=== PATIENT | female | born 1970 | race Caucasian/White ===

== ENCOUNTER 2021-07-08 08:00 | Outpatient (CLI) | payer MEDICAID, OTHER | END 2021-07-08 23:59 | disposition home or self-care (01) | LOC: LAB.N 08:00 | PROVIDERS: ATTEND Family Medicine | DX: U07.1 COVID-19 (principal) ==

== ENCOUNTER 2021-09-06 16:15 | Outpatient (CLI) | payer OTHER | END 2021-09-06 16:16 | disposition EMS.NT | LOC: EMS 16:15 | DX: S60.311A Abrasion of right thumb, initial encounter (principal); V47.5XXA Car driver injured in collision with fixed or stationary object in traffic accident, initial encounter; Y93.89 Activity, other specified; Y92.410 Unspecified street and highway as the place of occurrence of the external cause ==

== ENCOUNTER 2023-06-30 16:09 | Outpatient (CLI) | payer OTHER | END 2023-06-30 23:59 | disposition critical access hospital (66) | LOC: EMS 16:09 | DX: R41.82 Altered mental status, unspecified (principal); R46.89 Other symptoms and signs involving appearance and behavior | CPT/HCPCS: A0425; A0429 ==

== ENCOUNTER 2023-06-30 16:29 | Emergency (ER) | payer OTHER ==
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
[2023-06-30 17:06] LABS: MUDS CUTOFF CONCENTRATIONS CUTOFF CONC BELOW:
[2023-06-30 17:08] LABS: BASOPHILS % (AUTO) 0.6 %; EOSINOPHILS # (AUTO) 0.1 10^3/uL (0.0-0.7); EOSINOPHILS % (AUTO) 0.9 %; LYMPHOCYTES # (AUTO) 0.3 10^3/uL (1.5-3.5); LYMPHOCYTES % (AUTO) 5.3 %; MEAN CORPUSCULAR HEMOGLOBIN 28.4 pg (27.0-31.0); MEAN CORPUSCULAR HGB CONC 32.3 g/dL (32.0-36.0); MEAN CORPUSCULAR VOLUME 87.8 fL (81.0-99.0); MEAN PLATELET VOLUME 8.3 fL (7.9-10.8); MONOCYTES # (AUTO) 0.6 10^3/uL (0.0-1.0); MONOCYTES % (AUTO) 10.8 %; NEUTROPHILS # (AUTO) 4.3 10^3/uL (1.5-6.6); PLT - PLATELET COUNT 301 10^3/uL (130-450); RED BLOOD COUNT 2.22 10^6/uL (4.20-5.40); RED CELL DISTRIBUTION WIDTH 14.4 % (12.0-15.0); WHITE BLOOD COUNT 5.3 x10^3/uL (4.8-10.8)
[2023-06-30 17:13] LABS: BILIRUBIN,URINE NEGATIVE (NEGATIVE); GLUCOSE, URINE (UA) NEGATIVE (NEGATIVE); KETONES,URINE (UA) NEGATIVE (NEGATIVE); LEUKOCYTE ESTERASE, URINE NEGATIVE (NEGATIVE); NITRITE,URINE NEGATIVE (NEGATIVE); OCCULT BLOOD,URINE NEGATIVE (NEGATIVE); PH,URINE 5.5 PH (5.0-7.5); PROTEIN,URINE NEGATIVE (NEGATIVE); UROBILINOGEN,URINE 0.2 (NORMAL) E.U./dL (NORMAL)
[2023-06-30 17:17] LABS: CLARITY,URINE CLEAR (CLEAR)
[2023-06-30 17:20] LABS: HCT - HEMATOCRIT 19.5 % (37.0-47.0); HGB - HEMOGLOBIN 6.3 g/dL (12.0-16.0); INR 1.2 (0.8-1.2); PT - PROTHROMBIN TIME 13.3 secs (9.9-12.6)
[2023-06-30 17:25] LABS: AMPHETAMINE SCREEN,URINE NEGATIVE (NEGATIVE); BARBITURATE SCREEN,UR NEGATIVE (NEGATIVE); BENZODIAZEPINES SCREEN, URINE NEGATIVE (NEGATIVE); COCAINE SCREEN URINE NEGATIVE (NEGATIVE); METHADONE SCREEN, URINE NEGATIVE (NEGATIVE); METHAMPHETAMINES SCREEN, URINE NEGATIVE (NEGATIVE); OPIATE SCREEN, URINE NEGATIVE (NEGATIVE); OXYCODONE SCREEN, URINE NEGATIVE (NEGATIVE); PROPOXYPHENE SCREEN, URINE NEGATIVE (NEGATIVE); THC CANNABINOID SCREEN, URINE NEGATIVE (NEGATIVE); TRICYCLIC ANTIDEPRESSANT,URINE NEGATIVE (NEGATIVE)
[2023-06-30 17:26] LABS: ALBUMIN 3.8 g/dL (3.2-5.5); ALBUMIN/GLOBULIN RATIO 1.2 (1.0-2.2); ALKALINE PHOSPHATASE 135 IU/L (42-121); ALT ALANINE AMINOTRANSFERASE 37 IU/L (10-60); AST ASPARTATE AMINOTRANSFERASE 73 IU/L (10-42); BILIRUBIN,TOTAL 2.2 mg/dL (0.2-1.0); BUN - BLOOD UREA NITROGEN 52 mg/dL (6-20); CALCIUM 9.9 mg/dL (8.5-10.3); CARBON DIOXIDE - CO2 19 mmol/L (21-32); CHLORIDE 94 mmol/L (101-111); CK- CREATINE KINASE 490 IU/L (30-223); CREATININE 1.7 mg/dL (0.6-1.3); ETOH - ETHANOL < 10.0 mg/dL; GFR - MDRD 31 (>89); GLUCOSE 93 mg/dL (74-104); LIPASE 101 U/L (11-82); SODIUM 123 mmol/L (135-145); TOTAL PROTEIN 6.9 g/dL (6.4-8.9)
[2023-06-30 17:29] LABS: SALICYLATE < 1.5 mg/dL
[2023-06-30 17:30] LABS: ACETAMINOPHEN < 0.1 ug/mL
[2023-06-30] MEDS ORDERED: LACTULOSE 10 GM /15 ML UDC PO STA (17:54)
[2023-06-30 17:59] LABS: THYROID STIMULATING HORMONE 2.59 uIU/mL (0.34-5.60)
[2023-06-30] MEDS ORDERED: NICOTINE 21 MG PATCH TOP STA (18:10)
[2023-06-30 19:37] VITALS: O2SAT 100
--- NOTE | 2023-06-30 19:59 | CT Report ---
PROCEDURE: HEAD WO INDICATIONS: ams; ascites TECHNIQUE: Noncontrast 4.5 mm thick angled axial sections acquired from the foramen magnum to the vertex. For r adiation dose reduction, the following was used: automated exposure control, adjustment of mA and/or kV according to patient size. COMPARISON: None. FINDINGS: Image quality: Excellent. CSF spaces: Basal cisterns are patent. No extra-axial fluid collections. Ventricles are normal in size and shape. Brain: No midline shift. No intracranial masses or hemorrhage. Gibbs-white matter interface is norm al. Skull and face: Calvarium and visualized facial bones are intact, without suspicious lesions. Sinuses: Visualized sinuses and mastoids are clear. IMPRESSION: No acute intracranial pathology. Reviewed by: Yessica Genao MD on 06/30/2023 7:58 PM PDT Approved by: Yessica Genao MD on 06/30/2023 7:58 PM PDT Station ID: [id number]
[2023-06-30] MEDS ORDERED: PANTOPRAZOLE 40 MG VIAL IVP STA (20:46)
--- NOTE | 2023-06-30 20:46 | XRAY Report ---
PROCEDURE: Chest 1 View X-Ray INDICATIONS: AMS TECHNIQUE: One view of the chest was acquired. COMPARISON: None. FINDINGS: Surgical changes and devices: None. Lungs and pleura: No pleural effusions or pneumothorax. Lungs are clear. Mediastinum: Mediastinal contours appear normal. Heart size is normal. Bones and chest wall: No suspicious bony lesions. Overlying soft tissues appear unremarkable. IMPRESSION: No acute cardiopulmonary disease. Reviewed by: Reji James MD on 06/30/2023 8:45 PM PDT Approved by: Reji James MD on 06/30/2023 8:45 PM PDT Station ID: [id number]
--- NOTE | 2023-06-30 22:59 | ED Physician Documentation ---
ED Addendum - Addendum Addendum: 06/30/23 22:59 I did discuss the case with hepatology at the [facility], Dr. Collado who declined to the case for admission as patient does not need the specialized capabilities of the [facility]. Care to the overnight emergency physician at shift change pending hopeful [facility]well sfer to a Facility capable of hepatology consultation for likely slow GI bleed and JESSICA
--- NOTE | 2023-06-30 23:47 | ED Physician Documentation ---
ED Addendum - Addendum Addendum: 06/30/23 23:47 Still during my shift she was excepted to [facility] by Dr. Art Rosales at approximately 2340. [place] were completed and she is stable for transport. Disposition: Transfer to [facility] Condition: Stable Diagnosis: 1. GI bleed 2. Anemia related to GI bleed 3. Hepatic encephalopathy
[2023-07-01 02:23] VITALS: BP 129/66
[2023-07-01] MEDS ORDERED: LACTULOSE 10 GM /15 ML UDC PO SCH (03:00)
== END 2023-07-01 02:31 | disposition short-term general hospital (02) ==
LOC: EDUNIT# → ED 16:29
DX: K74.60 Unspecified cirrhosis of liver (principal); R18.8 Other ascites; K76.82 Hepatic encephalopathy; R41.82 Altered mental status, unspecified; E87.1 Hypo-osmolality and hyponatremia; R74.8 Abnormal levels of other serum enzymes; N18.32 Chronic kidney disease, stage 3b; D63.1 Anemia in chronic kidney disease; F17.200 Nicotine dependence, unspecified, uncomplicated; K92.2 Gastrointestinal hemorrhage, unspecified; Z79.899 Other long term (current) drug therapy
CPT/HCPCS: 36415; 70450; 71045; 80053; 80306; 80307; 80320; 80329; 81003; 82140; 82272; 82550; 83690; 83735; 84443; 85025; 85610; 86850; 86900; 86901; 86920; 87635; 93005; 96374; 99285; A9270; P9016; 81001; 87086

== ENCOUNTER 2023-07-04 15:13 | Outpatient (CLI) | payer OTHER | END 2023-07-04 15:14 | disposition critical access hospital (66) | LOC: EMS 15:13 | DX: R56.9 Unspecified convulsions (principal); R10.9 Unspecified abdominal pain; S00.83XA Contusion of other part of head, initial encounter; X58.XXXA Exposure to other specified factors, initial encounter | CPT/HCPCS: A0425; A0429 ==

== ENCOUNTER 2023-07-04 15:30 | Emergency (ER) | payer OTHER ==
[2023-07-04 16:06] LABS: BASOPHILS % (AUTO) 0.5 %; EOSINOPHILS # (AUTO) 0.1 10^3/uL (0.0-0.7); EOSINOPHILS % (AUTO) 1.2 %; HCT - HEMATOCRIT 24.3 % (37.0-47.0); HGB - HEMOGLOBIN 7.9 g/dL (12.0-16.0); LYMPHOCYTES # (AUTO) 0.3 10^3/uL (1.5-3.5); LYMPHOCYTES % (AUTO) 3.7 %; MEAN CORPUSCULAR HEMOGLOBIN 28.6 pg (27.0-31.0); MEAN CORPUSCULAR HGB CONC 32.5 g/dL (32.0-36.0); MEAN PLATELET VOLUME 8.3 fL (7.9-10.8); MONOCYTES # (AUTO) 0.9 10^3/uL (0.0-1.0); MONOCYTES % (AUTO) 11.2 %; NEUTROPHILS # (AUTO) 6.4 10^3/uL (1.5-6.6); PLT - PLATELET COUNT 241 10^3/uL (130-450); RED BLOOD COUNT 2.76 10^6/uL (4.20-5.40); RED CELL DISTRIBUTION WIDTH 14.8 % (12.0-15.0); WHITE BLOOD COUNT 8.2 x10^3/uL (4.8-10.8)
--- NOTE | 2023-07-04 16:09 | ED Physician Documentation ---
History of Present Illness - Stated complaint Stated Complaint: SZ - Chief complaint Chief Complaint: Neuro - History obtained from History obtained from: Patient, Family, EMS - History of Present Illness Timing: Today Pain level max: 0 Pain level now: 0 - Additonal information Additional information: 53-year-old female with a history of alcoholic liver cirrhosis presents to the emergency department after seizure-like episode at home today. Lasted somewhere between 30 seconds and a minute. Had the patient's mother states that her eyes "rolled back in her head" and she began to shake. Stop breathing for a few seconds. There is no description of a postictal period. Patient was not confused afterwards. Patient does have a history of hepatic encephalopathy. She was discharged from [facility] 2 days ago for anemia and hepatic encephalopathy. She had received 2 units of blood at that time. She is on medication at home but her family is unsure if she is taking the medication or not. Patient states that she has taken her medication. No fevers. No chills. No trauma. Patient denies any current alcohol use. Review of Systems Constitutional: denies: Fever, Chills GI: denies: Vomiting, Diarrhea Skin: denies: Rash Musculoskeletal: denies: Neck pain, Back pain Neurologic: denies: Headache PD PAST MEDICAL HISTORY - Past Medical History Past Medical History: Yes GI: Cirrhosis - Past Surgical History Past Surgical History: Yes Ortho: Spine surgery - Allergies Allergies/Adverse Reactions: Allergies Allergy/AdvReac Type Severity Reaction Status Date / Time No Known Drug Allergies Allergy Verified 06/30/23 16:35 - Social History Does the pt smoke?: Yes Smoking Status: Current every day smoker Does the pt drink ETOH?: Yes Does the pt have substance abuse?: No PD ED PE NORMAL - Vitals Vital signs reviewed: Yes - General General: Alert and oriented X 3, No acute distress, Well developed/nourished - HEENT HEENT: Atraumatic, PERRL, EOMI, Moist mucous membranes, Other (No tongue biting. No intraoral injury.) - Neck Neck: Supple, no meningeal sign, No bony TTP - Cardiac Cardiac: RRR, Strong equal pulses - Respiratory Respiratory: No respiratory distress, Clear bilaterally - Abdomen Abdomen: Normal bowel sounds, Soft, Other (Distended abdomen, soft, nontender. There is a open wound near the umbilicus. Patient states this is chronic and unchanged. There is no drainage.) - Back Back: No CVA TTP, No spinal TTP - Derm Derm: Warm and dry, No rash - Extremities Extremities: No edema, No calf tenderness / cord - Neuro Neuro: Alert and oriented X 3, registry rn 2-12 intact, No motor deficit, No sensory deficit, Normal speech Eye Opening: Spontaneous Motor: Obeys Commands Verbal: Oriented GCS Score: 15 - Psych Psych: Normal mood, Normal affect Results - Vitals Vitals: Vital Signs - 24 hr 07/04/23 07/04/23 07/04/23 15:37 16:10 17:16 Temperature 36.6 C Heart Rate 82 80 77 Respiratory 18 15 15 Rate Blood Pressure 119/101 H 84/49 L 104/69 O2 Saturation 100 100 100 07/04/23 07/04/23 17:17 18:04 Temperature Heart Rate 79 82 Respiratory 14 15 Rate Blood Pressure 106/59 L 91/60 O2 Saturation 100 95 Oxygen O2 Source Room air - Labs Labs: Laboratory Tests 07/04/23 07/04/23 07/04/23 15:55 15:55 15:55 WBC 8.2 RBC 2.76 L Hgb 7.9 L Hct 24.3 L MCV 88.0 MCH 28.6 MCHC 32.5 RDW 14.8 Plt Count 241 MPV 8.3 Neut # (Auto) 6.4 Lymph # (Auto) 0.3 L [place] # (Auto) 0.9 Eos # (Auto) 0.1 Baso # (Auto) 0.0 Absolute Nucleated RBC 0.00 Nucleated RBC % 0.0 Sodium 125 L Potassium 3.5 Chloride 97 L Carbon Dioxide 20 L Anion Gap 8.0 BUN 25 H Creatinine 0.8 Estimated GFR (MDRD) 75 L Glucose 104 Calcium 9.0 Magnesium 1.6 L Total Bilirubin 1.1 H AST 42 ALT 28 Alkaline Phosphatase 126 H Ammonia 45.5 Total Creatine Kinase 269 H Total Protein 6.5 Albumin 3.6 Globulin 2.9 Albumin/Globulin Ratio 1.2 Lipase 83 H TSH 4.06 Urine Color Urine Clarity Urine pH Ur Specific [place] Urine Protein Urine Glucose (UA) Urine Ketones Urine Occult Blood Urine Nitrite Urine Bilirubin Urine Urobilinogen Ur Leukocyte Esterase Ur Microscopic Review Urine Culture Comments Salicylates < 1.5 Urine Opiates Screen Ur Oxycodone Screen Urine Methadone Screen Ur Propoxyphene Screen Acetaminophen < 0 L Ur Barbiturates Screen Ur Tricyclics Screen Ur Phencyclidine Scrn Ur Amphetamine Screen U Methamphetamines Scrn U Benzodiazepines Scrn Urine Cocaine Screen U Cannabinoids Screen Ethyl Alcohol < 10.0 07/04/23 16:13 WBC RBC Hgb Hct MCV MCH MCHC RDW Plt Count MPV Neut # (Auto) Lymph # (Auto) [place] # (Auto) Eos # (Auto) Baso # (Auto) Absolute Nucleated RBC Nucleated RBC % Sodium Potassium Chloride Carbon Dioxide Anion Gap BUN Creatinine Estimated GFR (MDRD) Glucose Calcium Magnesium Total Bilirubin AST ALT Alkaline Phosphatase Ammonia Total Creatine Kinase Total Protein Albumin Globulin Albumin/Globulin Ratio Lipase TSH Urine Color YELLOW Urine Clarity CLEAR Urine pH 5.5 Ur Specific [place] 1.020 Urine Protein NEGATIVE Urine Glucose (UA) NEGATIVE Urine Ketones NEGATIVE Urine Occult Blood NEGATIVE Urine Nitrite NEGATIVE Urine Bilirubin NEGATIVE Urine Urobilinogen 0.2 (NORMAL) Ur Leukocyte Esterase NEGATIVE Ur Microscopic Review NOT INDICATED Urine Culture Comments NOT INDICATED Salicylates Urine Opiates Screen NEGATIVE Ur Oxycodone Screen NEGATIVE Urine Methadone Screen NEGATIVE Ur Propoxyphene Screen NEGATIVE Acetaminophen Ur Barbiturates Screen NEGATIVE Ur Tricyclics Screen NEGATIVE Ur Phencyclidine Scrn NEGATIVE Ur Amphetamine Screen NEGATIVE U Methamphetamines Scrn NEGATIVE U Benzodiazepines Scrn NEGATIVE Urine Cocaine Screen NEGATIVE U Cannabinoids Screen NEGATIVE Ethyl Alcohol - Rads (name of study) Head CT Relevant Findings:: Final report received, See rad report PD Medical Decision Making - ED course Complexity details: reviewed results, re-evaluated patient, considered differential, d/w patient, d/w family ED course: 53-year-old female with alcoholic cirrhosis of the liver. Seizure-like activity at home today. Unclear if this was a true seizure or not, family is not descriptive of a postictal period. 1 episode, never had similar symptoms in the past. Denies any recent alcohol or drug usage. Hemoglobin is around 8 which is stable for the patient. Her sodium levels are low at 125, this also appears to be chronic. She has no altered mental status. Ammonia is 45.5. She was given IV fluids here. Urinalysis does not show any infection. Toxicology screen is negative. She has a GI doctor at [facility] that she follows along with for her liver. I offered to start her on Keppra until she can see neurology and have an EEG as well as a brain MRI. Patient adamantly refuses any antiepileptic medications at this time. After to consult her neurologist as well which she also declines. She states she just wants to go home and will follow-up with her doctor. Patient is alert and oriented x3. We will have her follow-up with her PCP for further care. She was given a dose of pain medication here for her chronic back pain. Patient counseled regarding signs and symptoms for which I believe and urgent re-evaluation would be necessary. Patient with good understanding of and agreement to plan and is comfortable going home at this time This document was made in part using voice recognition software. While efforts are made to proofread this document, sound alike and grammatical errors may occur. Departure - Departure Disposition: 01 Home, Self Care Clinical Impression: Observed seizure-like activity, Hyponatremia Anemia Qualifiers: Anemia type: unspecified type Qualified Code(s): D64.9 - Anemia, unspecified Cirrhosis of liver Qualifiers: Hepatic cirrhosis type: alcoholic cirrhosis Ascites presence: with ascites Qualified Code(s): K70.31 - Alcoholic cirrhosis of liver with ascites Condition: Good Instructions: ED Cirrhosis Liver, ED Seizure New Onset Unk Cause Follow-Up: your,doctor in 1 week [Other] Comments: Please follow-up with your doctor for further care. Please return if you worsen. We did discuss starting medications for seizures tonight but you have declined this. If you have another seizure, I would recommend starting medication. Your doctor may want to perform an MRI and an EEG, MRI is not available tonight and we do not have EEG services at this hospital. Otherwise your head CT does not show any acute abnormalities tonight and your laboratory testing is stable from prior. Forms: PCP List Discharge Date/Time: 07/04/23 18:22
[2023-07-04 16:16] LABS: ALBUMIN 3.6 g/dL (3.2-5.5); ALBUMIN/GLOBULIN RATIO 1.2 (1.0-2.2); ALKALINE PHOSPHATASE 126 IU/L (42-121); ALT ALANINE AMINOTRANSFERASE 28 IU/L (10-60); AST ASPARTATE AMINOTRANSFERASE 42 IU/L (10-42); BILIRUBIN,TOTAL 1.1 mg/dL (0.2-1.0); BUN - BLOOD UREA NITROGEN 25 mg/dL (6-20); CARBON DIOXIDE - CO2 20 mmol/L (21-32); CHLORIDE 97 mmol/L (101-111); CK- CREATINE KINASE 269 IU/L (30-223); CREATININE 0.8 mg/dL (0.6-1.3); ETOH - ETHANOL < 10.0 mg/dL; GFR - MDRD 75 (>89); GLUCOSE 104 mg/dL (74-104); LIPASE 83 U/L (11-82); MAGNESIUM 1.6 mg/dL (1.7-2.3); POTASSIUM 3.5 mmol/L (3.5-4.5); SODIUM 125 mmol/L (135-145); TOTAL PROTEIN 6.5 g/dL (6.4-8.9)
[2023-07-04 16:19] LABS: SALICYLATE < 1.5 mg/dL
[2023-07-04] MEDS ORDERED: MAGNESIUM SULFATE 2 GRAM 2 GM/50 ML BAG IV ONE (16:28)
[2023-07-04] MEDS ORDERED: SODIUM CHLORIDE 0.9% 1,000 ML IV STA (16:28)
[2023-07-04 16:35] LABS: MUDS CUTOFF CONCENTRATIONS CUTOFF CONC BELOW:
[2023-07-04 16:40] LABS: BILIRUBIN,URINE NEGATIVE (NEGATIVE); GLUCOSE, URINE (UA) NEGATIVE (NEGATIVE); KETONES,URINE (UA) NEGATIVE (NEGATIVE); LEUKOCYTE ESTERASE, URINE NEGATIVE (NEGATIVE); NITRITE,URINE NEGATIVE (NEGATIVE); OCCULT BLOOD,URINE NEGATIVE (NEGATIVE); PH,URINE 5.5 PH (5.0-7.5); PROTEIN,URINE NEGATIVE (NEGATIVE); UROBILINOGEN,URINE 0.2 (NORMAL) E.U./dL (NORMAL)
[2023-07-04 16:41] LABS: CLARITY,URINE CLEAR (CLEAR)
[2023-07-04 16:49] LABS: THYROID STIMULATING HORMONE 4.06 uIU/mL (0.34-5.60)
[2023-07-04 16:53] LABS: AMPHETAMINE SCREEN,URINE NEGATIVE (NEGATIVE); BARBITURATE SCREEN,UR NEGATIVE (NEGATIVE); BENZODIAZEPINES SCREEN, URINE NEGATIVE (NEGATIVE); COCAINE SCREEN URINE NEGATIVE (NEGATIVE); METHADONE SCREEN, URINE NEGATIVE (NEGATIVE); METHAMPHETAMINES SCREEN, URINE NEGATIVE (NEGATIVE); OPIATE SCREEN, URINE NEGATIVE (NEGATIVE); OXYCODONE SCREEN, URINE NEGATIVE (NEGATIVE); PROPOXYPHENE SCREEN, URINE NEGATIVE (NEGATIVE); THC CANNABINOID SCREEN, URINE NEGATIVE (NEGATIVE); TRICYCLIC ANTIDEPRESSANT,URINE NEGATIVE (NEGATIVE)
[2023-07-04 17:13] LABS: ACETAMINOPHEN < 0 ug/mL (10-30)
--- NOTE | 2023-07-04 17:13 | CT Report ---
PROCEDURE: HEAD WO INDICATIONS: seizure like activity TECHNIQUE: Noncontrast 4.5 mm thick angled axial sections acquired from the foramen magnum to the vertex. For r adiation dose reduction, the following was used: automated exposure control, adjustment of mA and/or kV according to patient size. COMPARISON: CT head 06/30/2023 FINDINGS: Image quality: Excellent. CSF spaces: Basal cisterns are patent. No extra-axial fluid collections. Ventricles are normal in size and shape. Brain: No midline shift. No intracranial masses or hemorrhage. Gibbs-white matter interface is norm al. Skull and face: Calvarium and visualized facial bones are intact, without suspicious lesions. Sinuses: Visualized sinuses and mastoids are clear. IMPRESSION: No acute intracranial pathology. No significant interval change. Reviewed by: Giorgio Busby MD on 07/04/2023 5:12 PM PDT Approved by: Giorgio Busby MD on 07/04/2023 5:12 PM PDT Station ID: [id number]
[2023-07-04] MEDS ORDERED: oxyCODONE 5 MG TABLET PO STA (17:59)
[2023-07-04 18:12] VITALS: BP 91/60; O2SAT 95
== END 2023-07-04 18:22 | disposition home or self-care (01) ==
LOC: EDUNIT# → ED 15:30
DX: E87.1 Hypo-osmolality and hyponatremia (principal); D64.9 Anemia, unspecified; K74.60 Unspecified cirrhosis of liver; R18.8 Other ascites; F17.200 Nicotine dependence, unspecified, uncomplicated
CPT/HCPCS: 36415; 70450; 80053; 80306; 80307; 80320; 80329; 81003; 82140; 82550; 83690; 83735; 84443; 85025; 96365; 99284; A9270; 81001; 87086

== ENCOUNTER 2023-08-05 19:48 | Outpatient (CLI) | payer MEDICAID | END 2023-08-05 19:49 | disposition critical access hospital (66) | LOC: EMS 19:48 | DX: R41.0 Disorientation, unspecified (principal) | CPT/HCPCS: A0425; A0429; A0999 ==

== ENCOUNTER 2023-08-05 20:12 | Inpatient (IN) | payer MEDICAID, OTHER ==
[2023-08-05 20:30] LABS: BASOPHILS % (AUTO) 0.7 %; EOSINOPHILS # (AUTO) 0.2 10^3/uL (0.0-0.7); EOSINOPHILS % (AUTO) 2.8 %; HCT - HEMATOCRIT 28.8 % (37.0-47.0); HGB - HEMOGLOBIN 9.8 g/dL (12.0-16.0); LYMPHOCYTES # (AUTO) 0.5 10^3/uL (1.5-3.5); LYMPHOCYTES % (AUTO) 8.6 %; MEAN CORPUSCULAR HEMOGLOBIN 29.4 pg (27.0-31.0); MEAN CORPUSCULAR VOLUME 86.5 fL (81.0-99.0); MEAN PLATELET VOLUME 8.2 fL (7.9-10.8); MONOCYTES # (AUTO) 0.7 10^3/uL (0.0-1.0); MONOCYTES % (AUTO) 11.7 %; NEUTROPHILS # (AUTO) 4.6 10^3/uL (1.5-6.6); NEUTROPHILS % (AUTO) 75.5 %; PLT - PLATELET COUNT 248 10^3/uL (130-450); RED BLOOD COUNT 3.33 10^6/uL (4.20-5.40); RED CELL DISTRIBUTION WIDTH 16.6 % (12.0-15.0); WHITE BLOOD COUNT 6.1 x10^3/uL (4.8-10.8)
--- NOTE | 2023-08-05 20:33 | ED Physician Documentation ---
PD HPI ALTERED MENTAL STATUS - Stated complaint Stated Complaint: CONFUSION - Chief complaint Chief Complaint: Neuro - History obtained from History obtained from: Family - Additional information Additional information: 53-year-old female with history of alcoholic cirrhosis with ascites presents by EMS from home for altered mental status. History is obtained from EMS and mother at bedside. Mother states that the patient is fiercely independent and does not allow her family to know most things about her medical care. Patient is 8 days postoperative from a abdominal hernia repair, however mother states that the incision is constantly draining clear fluid. She was set to have a paracentesis done earlier today, however there is no fluid in her abdomen was not drained. Mother states that when patient becomes "like this" that it usually means that she has been noncompliant with her lactulose. Patient is arousable to pain, responds to her name being called to her, but does not follow commands Review of Systems Unable to obtain: AMS PD PAST MEDICAL HISTORY - Past Medical History Past Medical History: Yes GI: Cirrhosis - Past Surgical History Past Surgical History: Yes Ortho: Spine surgery - Present Medications Home Medications: Ambulatory Orders Medication Instructions Recorded Confirmed Furosemide [Lasix] 20 mg PO DAILY 08/05/23 08/05/23 - Allergies Allergies/Adverse Reactions: Allergies Allergy/AdvReac Type Severity Reaction Status Date / Time No Known Drug Allergies Allergy Verified 08/05/23 20:24 - Social History Does the pt smoke?: Yes Smoking Status: Current every day smoker Does the pt drink ETOH?: Yes Does the pt have substance abuse?: No PD ED PE NORMAL - Vitals Vital signs reviewed: Yes - General General: Other (underweight, frail, chronically unwell appearing, appears older than stated age) - Neck Neck: Supple, no meningeal sign - Cardiac Cardiac: Strong equal pulses, Other (tachycardia) - Respiratory Respiratory: No respiratory distress, Clear bilaterally - Abdomen Abdomen: Soft, Other (large ventral hernia with midline vertical repair. [place] and sutures in place. No erythema or warmth. Serous drainage from wound) - Derm Derm: Warm and dry, No rash - Extremities Extremities: No deformity - Neuro Neuro: quality assurance monitor body 2-12 intact, No motor deficit, Other (moves all extremities. Oriented x1) Results - Vitals Vitals: Vital Signs - 24 hr 08/05/23 08/05/23 08/05/23 20:10 20:18 21:18 Temperature 36.5 C 36.5 C 36.8 C Heart Rate 101 H 101 H 89 Respiratory 15 15 12 Rate Blood Pressure 110/70 110/70 100/50 L O2 Saturation 100 100 100 08/05/23 08/05/23 08/05/23 21:30 22:00 22:30 Temperature 36.5 C Heart Rate 88 86 86 Respiratory 12 12 12 Rate Blood Pressure 108/60 110/60 108/62 O2 Saturation 98 98 98 08/05/23 08/05/23 08/06/23 23:00 23:30 00:00 Temperature 36.5 C 36.8 C 36.8 C Heart Rate 100 90 90 Respiratory 16 14 12 Rate Blood Pressure 100/60 98/64 106/66 O2 Saturation 100 100 99 Oxygen O2 Source Room air - Labs Labs: Laboratory Tests 08/05/23 08/05/23 08/05/23 20:20 20:20 20:20 WBC 6.1 RBC 3.33 L Hgb 9.8 L Hct 28.8 L MCV 86.5 MCH 29.4 MCHC 34.0 RDW 16.6 H Plt Count 248 MPV 8.2 Neut # (Auto) 4.6 Lymph # (Auto) 0.5 L [place] # (Auto) 0.7 Eos # (Auto) 0.2 Baso # (Auto) 0.0 Absolute Nucleated RBC 0.00 Nucleated RBC % 0.0 Sodium 123 L Potassium 5.7 H Chloride 96 L Carbon Dioxide 19 L Anion Gap 8.0 BUN 35 H Creatinine 1.2 Estimated GFR (MDRD) 47 L Glucose 97 Calcium 9.1 Total Bilirubin 1.1 H AST 41 ALT 32 Alkaline Phosphatase 170 H Ammonia Total Protein 6.4 Albumin 3.5 Globulin 2.9 Albumin/Globulin Ratio 1.2 Lipase 104 H Urine Color Urine Clarity Urine pH Ur Specific [place] Urine Protein Urine Glucose (UA) Urine Ketones Urine Occult Blood Urine Nitrite Urine Bilirubin Urine Urobilinogen Ur Leukocyte Esterase Ur Microscopic Review Urine Culture Comments Salicylates < 1.5 Urine Opiates Screen Ur Oxycodone Screen Urine Methadone Screen Ur Propoxyphene Screen Acetaminophen < 0.1 Ur Barbiturates Screen Ur Tricyclics Screen Ur Phencyclidine Scrn Ur Amphetamine Screen U Methamphetamines Scrn U Benzodiazepines Scrn Urine Cocaine Screen U Cannabinoids Screen Ethyl Alcohol < 10.0 08/05/23 08/05/23 08/05/23 20:30 21:00 21:00 WBC RBC Hgb Hct MCV MCH MCHC RDW Plt Count MPV Neut # (Auto) Lymph # (Auto) [place] # (Auto) Eos # (Auto) Baso # (Auto) Absolute Nucleated RBC Nucleated RBC % Sodium Potassium Chloride Carbon Dioxide Anion Gap BUN Creatinine Estimated GFR (MDRD) Glucose Calcium Total Bilirubin AST ALT Alkaline Phosphatase Ammonia 215.0 H* Total Protein Albumin Globulin Albumin/Globulin Ratio Lipase Urine Color YELLOW Urine Clarity CLEAR Urine pH 6.5 Ur Specific [place] 1.010 Urine Protein NEGATIVE Urine Glucose (UA) NEGATIVE Urine Ketones NEGATIVE Urine Occult Blood NEGATIVE Urine Nitrite NEGATIVE Urine Bilirubin NEGATIVE Urine Urobilinogen 1 (NORMAL) Ur Leukocyte Esterase NEGATIVE Ur Microscopic Review NOT INDICATED Urine Culture Comments NOT INDICATED Salicylates Urine Opiates Screen POSITIVE H Ur Oxycodone Screen NEGATIVE Urine Methadone Screen NEGATIVE Ur Propoxyphene Screen NEGATIVE Acetaminophen Ur Barbiturates Screen NEGATIVE Ur Tricyclics Screen NEGATIVE Ur Phencyclidine Scrn NEGATIVE Ur Amphetamine Screen NEGATIVE U Methamphetamines Scrn NEGATIVE U Benzodiazepines Scrn NEGATIVE Urine Cocaine Screen NEGATIVE U Cannabinoids Screen NEGATIVE Ethyl Alcohol PD Medical Decision Making - ED course Complexity details: reviewed old records, reviewed results, re-evaluated patient, considered differential, d/w patient, d/w family ED course: Altered mental status and patient with history of cirrhosis. Questionable compliance to lactulose. Patient is protecting her airway, curled onto her side, not following commands, but responding to verbal and painful stimuli. Laboratory work significant for hyponatremia, chronic, hypochloremia (chronic). Ammonia 215. Attempted lactulose enema, however only partially successful per nursing staff. Patient initially unwilling or unable to take p.o. lactulose and NG tube was ordered, however as NG tube was going to be placed patient did open her mouth for nursing staff and took oral dose of lactulose. Imaging negative for acute findings. Admitted for further treatment. Departure - Departure Disposition: 66 [facility] DC/Xfer Clinical Impression: Hepatic encephalopathy Altered mental status Qualifiers: Altered mental status type: coma Coma depth: Maicol coma 13-15 Coma timing: at hospital admission Qualified Code(s): R40.2413 - Maicol coma scale score 13- 15, at hospital admission Condition: Serious
[2023-08-05 20:44] LABS: ALBUMIN 3.5 g/dL (3.2-5.5); ALBUMIN/GLOBULIN RATIO 1.2 (1.0-2.2); BILIRUBIN,TOTAL 1.1 mg/dL (0.2-1.0); CALCIUM 9.1 mg/dL (8.5-10.3); CREATININE 1.2 mg/dL (0.6-1.3); POTASSIUM 5.7 mmol/L (3.5-4.5); TOTAL PROTEIN 6.4 g/dL (6.4-8.9)
[2023-08-05] MEDS ORDERED: LACTULOSE 10 GM /15 ML UDC PR STA (20:51)
[2023-08-05 21:01] LABS: ETOH - ETHANOL < 10.0 mg/dL
[2023-08-05 21:02] LABS: ACETAMINOPHEN < 0.1 ug/mL; SALICYLATE < 1.5 mg/dL
--- NOTE | 2023-08-05 21:04 | XRAY Report ---
PROCEDURE: Chest 1 View X-Ray INDICATIONS: AMS TECHNIQUE: One view of the chest was acquired. COMPARISON: 06/30/2023 FINDINGS: Lungs and pleura: No pleural effusions or pneumothorax. Lungs are clear. Mediastinum: Mediastinal contours appear normal. Heart size is normal. Bones and chest wall: No suspicious bony lesions. Overlying soft tissues appear unremarkable. IMPRESSION: No acute cardiopulmonary process. Reviewed by: Giorgio Cobb MD on 08/05/2023 9:03 PM PDT Approved by: Giorgio Cobb MD on 08/05/2023 9:03 PM PDT Station ID: [id number]
[2023-08-05] MEDS ORDERED: LACTULOSE 10 GM /15 ML UDC ONE ×2 (21:13→21:17)
[2023-08-05 21:20] LABS: MUDS CUTOFF CONCENTRATIONS CUTOFF CONC BELOW:
[2023-08-05 21:24] LABS: BILIRUBIN,URINE NEGATIVE (NEGATIVE); GLUCOSE, URINE (UA) NEGATIVE (NEGATIVE); KETONES,URINE (UA) NEGATIVE (NEGATIVE); LEUKOCYTE ESTERASE, URINE NEGATIVE (NEGATIVE); NITRITE,URINE NEGATIVE (NEGATIVE); OCCULT BLOOD,URINE NEGATIVE (NEGATIVE); PH,URINE 6.5 PH (5.0-7.5); PROTEIN,URINE NEGATIVE (NEGATIVE); UROBILINOGEN,URINE 1 (NORMAL) E.U./dL (NORMAL)
[2023-08-05 21:25] LABS: CLARITY,URINE CLEAR (CLEAR)
[2023-08-05 21:35] LABS: AMPHETAMINE SCREEN,URINE NEGATIVE (NEGATIVE); BARBITURATE SCREEN,UR NEGATIVE (NEGATIVE); BENZODIAZEPINES SCREEN, URINE NEGATIVE (NEGATIVE); COCAINE SCREEN URINE NEGATIVE (NEGATIVE); METHADONE SCREEN, URINE NEGATIVE (NEGATIVE); METHAMPHETAMINES SCREEN, URINE NEGATIVE (NEGATIVE); OPIATE SCREEN, URINE POSITIVE (NEGATIVE); OXYCODONE SCREEN, URINE NEGATIVE (NEGATIVE); PROPOXYPHENE SCREEN, URINE NEGATIVE (NEGATIVE); THC CANNABINOID SCREEN, URINE NEGATIVE (NEGATIVE); TRICYCLIC ANTIDEPRESSANT,URINE NEGATIVE (NEGATIVE)
[2023-08-05] MEDS ORDERED: LACTULOSE 10 GM /15 ML UDC PO STA (21:36)
--- NOTE | 2023-08-05 23:31 | CT Report ---
PROCEDURE: HEAD WO INDICATIONS: AMS TECHNIQUE: Noncontrast 4.5 mm thick angled axial sections acquired from the foramen magnum to the vertex. For r adiation dose reduction, the following was used: automated exposure control, adjustment of mA and/or kV according to patient size. COMPARISON: 07/04/2023 FINDINGS: CSF spaces: Basal cisterns are patent. No extra-axial fluid collections. Ventricles are normal in size and shape. Brain: No midline shift. No intracranial masses or hemorrhage. Gibbs-white matter interface is norm al. Skull and face: Calvarium and visualized facial bones are intact, without suspicious lesions. Sinuses: Visualized sinuses and mastoids are clear. IMPRESSION: No acute intracranial pathology. Reviewed by: Giorgio Cobb MD on 08/05/2023 11:30 PM PDT Approved by: Giorgio Cobb MD on 08/05/2023 11:30 PM PDT Station ID: [id number]
[2023-08-06] MEDS ORDERED: HYDROcod/ACETAM 5/325 MG TABLET PO PRN ×2 (00:04→14:22)
[2023-08-06] MEDS ORDERED: ONDANSETRON 4 MG/2 ML VIAL IVP PRN (00:04)
--- NOTE | 2023-08-06 00:17 | HISTORY & PHYSICAL EXAMINATION ---
Chief Complaint - Chief Complaint Chief Complaint: change in menal status History of Present Illness - Admitted From Admitted From:: Home - History Obtained From Records Reviewed: Yes History obtained from: Mother and ER team Exam Limitations: Patient is somnolent and encepahlopathic - History of Present Illness HPI Comment/Other: 53-year-old female with history of alcoholic cirrhosis with ascites presents by EMS from home for altered mental status. History is obtained from EMS and mother at bedside. Mother states that the patient is fiercely independent and does not allow her family to know most things about her medical care. Patient is 8 days postoperative from a abdominal hernia repair, however mother states that the incision is constantly draining clear fluid. She was set to have a paracentesis done earlier today, however there is no fluid in her abdomen was not drained. Mother states that when patient becomes "like this" that it usually means that she has been noncompliant with her lactulose. Patient lives in [place] in her younger days, she is single never , is on transplant list, stop driniking for a long time, has worked in [employer] and has done multiple small jobs, is full code. Mother used to work as a power electronics research engineer at [employer] in [place]. Patient went this am for her paracentesis but no fluid as fluid has been leaking from her abominal open wound would recommend wound consult and surgery input in am Patient when seen bv me is somnolent and not able to answer any questions Mom informed that this is a televideo visit and I am based in [place] History - Past Medical History GI: reports: Cirrhosis MRSA Hx?: No - Past Surgical History Ortho: reports: Spine surgery Meds/Allgy - Home Medications Home Medications: Ambulatory Orders Medication Instructions Recorded Confirmed Furosemide [Lasix] 20 mg PO DAILY 08/05/23 08/05/23 - Allergies Allergies/Adverse Reactions: Allergies Allergy/AdvReac Type Severity Reaction Status Date / Time No Known Drug Allergies Allergy Verified 08/05/23 20:24 Review of Systems - Other Findings Other Findings: Unable to botain as patient is somno,lent as per mom has been sleeping since noon time, no fevers, no chill no illness in last few days recently had her ventral hernia surgery done Prior Level of Functionality: Indpendent with ADL Exam - Vital Signs Vital Signs: Vital Signs x48h Temp Pulse Resp BP Pulse Ox 08/06/23 00:00 36.8 C 90 12 106/66 99 08/05/23 23:30 36.8 C 90 14 98/64 100 08/05/23 23:00 36.5 C 100 16 100/60 100 08/05/23 22:30 86 12 108/62 98 08/05/23 22:00 36.5 C 86 12 110/60 98 08/05/23 21:30 88 12 108/60 98 08/05/23 21:18 36.8 C 89 12 100/50 L 100 08/05/23 20:18 36.5 C 101 H 15 110/70 100 08/05/23 20:10 36.5 C 101 H 15 110/70 100 - Physical Exam General Appearance: positive: No acute distress, Lethargic Respiratory: positive: Chest non-tender, No respiratory distress Cardiovascular: positive: Regular rate & rhythm Abdomen: positive: Non-tender, No organomegaly Skin: positive: Color nml Extremities: positive: No pedal edema Neurologic/Psychiatric: positive: Other (Encepahlopathic) Sepsis Event Note (H) - Evaluation Current Stage of Sepsis: Ruled out Conclusion/Plan - Problem List (1) Hepatic encephalopathy Conclusion/Plan: Lactulose to be given to make her have 2-3 bm at home She is prescirbed lactulose tid but takes only once a day Resume Lasix, start aldactone, rifaximin and consider low dose BB in am Repeat labs in am On transplant list Na is low likely from ascites and cirrhosis her baseline na is low Repat K if high may have to hold aldactone (2) AMS (altered mental status) Conclusion/Plan: From elevated ammonia Should improve with BM CT head negative Qualifiers: Altered mental status type: coma Coma depth: Maicol coma 13-15 Coma timing: at hospital admission Qualified Code(s): R40.2413 - Ma[place] coma scale score 13-15, at hospital admission (3) Cirrhosis of liver Conclusion/Plan: On transplant list Needs to follow with hepatology on dc SCd Qualifiers: Hepatic cirrhosis type: alcoholic cirrhosis Ascites presence: with ascites Qualified Code(s): K70.31 - Alcoholic cirrhosis of liver with ascites - Lab Results Fish Bones: 08/05/23 20:20 08/05/23 20:20 - EKG Results EKG Interpreted Independently: No EKG Comparison: Old EKG unavailable
[2023-08-06] MEDS: SODIUM CHLORIDE FLUSH 0.9% 10 ML SYRINGE IVP SCH ×3 (01:30→17:15)
[2023-08-06] MEDS ORDERED: FUROSEMIDE 40 MG/4 ML VIAL IVP ONE (05:00)
[2023-08-06 05:27] LABS: BASOPHILS # (AUTO) 0.1 10^3/uL (0.0-0.1); BASOPHILS % (AUTO) 0.9 %; EOSINOPHILS # (AUTO) 0.2 10^3/uL (0.0-0.7); EOSINOPHILS % (AUTO) 2.7 %; HCT - HEMATOCRIT 30.1 % (37.0-47.0); HGB - HEMOGLOBIN 10.3 g/dL (12.0-16.0); LYMPHOCYTES # (AUTO) 0.5 10^3/uL (1.5-3.5); LYMPHOCYTES % (AUTO) 7.5 %; MEAN CORPUSCULAR HEMOGLOBIN 29.9 pg (27.0-31.0); MEAN CORPUSCULAR HGB CONC 34.2 g/dL (32.0-36.0); MEAN CORPUSCULAR VOLUME 87.2 fL (81.0-99.0); MEAN PLATELET VOLUME 7.8 fL (7.9-10.8); MONOCYTES # (AUTO) 0.8 10^3/uL (0.0-1.0); MONOCYTES % (AUTO) 12.5 %; NEUTROPHILS # (AUTO) 4.8 10^3/uL (1.5-6.6); NEUTROPHILS % (AUTO) 75.5 %; PLT - PLATELET COUNT 208 10^3/uL (130-450); RED BLOOD COUNT 3.45 10^6/uL (4.20-5.40); RED CELL DISTRIBUTION WIDTH 16.8 % (12.0-15.0); WHITE BLOOD COUNT 6.4 x10^3/uL (4.8-10.8)
[2023-08-06 05:44] LABS: ALBUMIN 3.4 g/dL (3.2-5.5); ALBUMIN/GLOBULIN RATIO 1.1 (1.0-2.2); BILIRUBIN,TOTAL 1.5 mg/dL (0.2-1.0); CALCIUM 9.5 mg/dL (8.5-10.3); CREATININE 1.2 mg/dL (0.6-1.3); TOTAL PROTEIN 6.6 g/dL (6.4-8.9)
[2023-08-06] MEDS: LACTULOSE 10 GM /15 ML UDC PO SCH ×3 (06:20→21:15)
[2023-08-06] MEDS ORDERED: SPIRONOLACTONE 25 MG TABLET PO SCH (09:00)
[2023-08-06] MEDS ORDERED: FUROSEMIDE 20 MG TABLET PO SCH (09:00)
[2023-08-06] MEDS: rifAXIMin 550 MG TABLET PO SCH ×2 (09:22→21:14)
--- NOTE | 2023-08-06 12:15 | PHARMACY PROGRESS NOTE ---
- Best Possible Medication History Admit Date and Time: 08/06/23 0836 Processed by: Pharmacy Medication History completed: Yes Patient Interview: Pt unable to participate Secondary Source(s): Pharmacy records, Insurance records (Called and verified med list with [facility] Pharmacist) As the person ultimately responsible for medication therapy, providers are able to order a medication from an existing home medication list in [facility] via the "Reconcile Routine" prior to Confirmation of that medication by application support administrator. Such practice is discouraged except when the physician, in their clinical judgment, deems that a medical need exists for a medication without regard to previous use.
--- NOTE | 2023-08-06 13:06 | CONSULTATION NOTE ---
Referring Provider Consult Date: 08/06/23 Chief Complaint - Chief Complaint Chief Complaint: pt currently does not communicate History of Present Illness - History Obtained From Records Reviewed: yes History obtained from: chart review Exam Limitations: pt encephalopathic and not communicating - History of Present Illness HPI Comment/Other: by chart review she had a ventral hernia surgery 8 days ago. location unknown to me. history end stage liver disease, ascites, and on transplant list. admitted with encephalopathy and I saw consult ordered for wound care. History - Past Medical History GI: reports: Cirrhosis MRSA Hx?: No - Past Surgical History Ortho: reports: Spine surgery Meds/Allgy - Home Medications Home Medications: Ambulatory Orders Medication Instructions Recorded Confirmed Furosemide [Lasix] 40 mg PO BID 08/06/23 08/06/23 Lactulose 30 ml PO TID 08/06/23 08/06/23 Lidocaine Patch 5% [Lidoderm Patch] 1 patch DAILY 08/06/23 08/06/23 Omeprazole 40 mg PO BID 08/06/23 08/06/23 Potassium Chloride [K-Dur] 20 meq PO BID 08/06/23 08/06/23 Spironolactone [Aldactone] 300 mg PO DAILY 08/06/23 08/06/23 traZODone [Desyrel] 50 mg PO HS PRN 08/06/23 08/06/23 - Allergies Allergies/Adverse Reactions: Allergies Allergy/AdvReac Type Severity Reaction Status Date / Time No Known Drug Allergies Allergy Verified 08/05/23 20:24 Exam - Vital Signs Vital Signs: Vital Signs x48h Temp Pulse Resp BP Pulse Ox 08/06/23 08:02 36.3 C L 114 H 20 118/63 100 - Physical Exam General Appearance: positive: No acute distress, Lethargic, Other (not communicating. does open eyes to voice cachectic and ill appearing) ENT: positive: No signs of dehydration Neck: positive: No JVD, Trachea midline Respiratory: positive: No respiratory distress Abdomen: positive: Non-tender, Other (mild ascites present. low midline incision with adrian and sutures no cellulitis) Neurologic/Psychiatric: positive: Other (as above opens eyes to voice other than not speaking or moving) Conclusion and Plan - Lab Results Laboratory Results 08/06/23 05:21: Ammonia 99.9 H* 08/06/23 05:21: Sodium 126 L, Potassium 5.0 H, Chloride 99 L, Carbon Dioxide 18 L, Anion Gap 9.0, BUN 36 H, Creatinine 1.2, Estimated GFR (MDRD) 47 L, Glucose 98, Calcium 9.5, Total Bilirubin 1.5 H, AST 40, ALT 31, Alkaline Phosphatase 166 H, Total Protein 6.6, Albumin 3.4, Globulin 3.2, Albumin/Globulin Ratio 1.1 08/06/23 05:21: WBC 6.4, RBC 3.45 L, Hgb 10.3 L, Hct 30.1 L, MCV 87.2, MCH 29.9, MCHC 34.2, RDW 16.8 H, Plt Count 208, MPV 7.8 L, Neut # (Auto) 4.8, Lymph # (Auto) 0.5 L, [place] # (Auto) 0.8, Eos # (Auto) 0.2, Baso # (Auto) 0.1, Absolute Nucleated RBC 0.00, Nucleated RBC % 0.0 08/05/23 21:00: Urine Color YELLOW, Urine Clarity CLEAR, Urine pH 6.5, Ur Specific [place] 1.010, Urine Protein NEGATIVE, Urine Glucose (UA) NEGATIVE, Urine Ketones NEGATIVE, Urine Occult Blood NEGATIVE, Urine Nitrite NEGATIVE, Urine Bilirubin NEGATIVE, Urine Urobilinogen 1 (NORMAL), Ur Leukocyte Esterase NEGATIVE, Ur Microscopic Review NOT INDICATED, Urine Culture Comments NOT INDICATED 08/05/23 21:00: Urine Opiates Screen POSITIVE H, Ur Oxycodone Screen NEGATIVE, Urine Methadone Screen NEGATIVE, Ur Propoxyphene Screen NEGATIVE, Ur Barbiturates Screen NEGATIVE, Ur Tricyclics Screen NEGATIVE, Ur Phencyclidine Scrn NEGATIVE, Ur Amphetamine Screen NEGATIVE, U Methamphetamines Scrn NEGATIVE, U Benzodiazepines Scrn NEGATIVE, Urine Cocaine Screen NEGATIVE, U Cannabinoids Screen NEGATIVE 08/05/23 20:30: Ammonia 215.0 H* 08/05/23 20:20: Salicylates < 1.5, Acetaminophen < 0.1, Ethyl Alcohol < 10.0 08/05/23 20:20: Sodium 123 L, Potassium 5.7 H, Chloride 96 L, Carbon Dioxide 19 L, Anion Gap 8.0, BUN 35 H, Creatinine 1.2, Estimated GFR (MDRD) 47 L, Glucose 97, Calcium 9.1, Total Bilirubin 1.1 H, AST 41, ALT 32, Alkaline Phosphatase 170 H, Total Protein 6.4, Albumin 3.5, Globulin 2.9, Albumin/Globulin Ratio 1.2, Lipase 104 H 08/05/23 20:20: WBC 6.1, RBC 3.33 L, Hgb 9.8 L, Hct 28.8 L, MCV 86.5, MCH 29.4, MCHC 34.0, RDW 16.6 H, Plt Count 248, MPV 8.2, Neut # (Auto) 4.6, Lymph # (Auto) 0.5 L, [place] # (Auto) 0.7, Eos # (Auto) 0.2, Baso # (Auto) 0.0, Absolute Nucleated RBC 0.00, Nucleated RBC % 0.0 - Diagnosis Diagnosis: recent ventral surgery. surgery not done at [facility]. she as end stage liver disease and ascites - Plan Plan: agree with abd dressings and change as needed recommend abdominal binder do not recommend further surgical procedures at [facility] or paracentesis at [facility].
[2023-08-06] MEDS ORDERED: traZODone 50 MG TABLET PO PRN (14:21)
[2023-08-06] MEDS: LIDOCAINE PATCH 5% TOP SCH (14:39)
[2023-08-06] MEDS: PANTOPRAZOLE 40 MG TABLET PO SCH (17:14)
[2023-08-06] MEDS ORDERED: POTASSIUM CHLORIDE 20 MEQ TABLET PO SCH (21:00)
[2023-08-07 05:32] LABS: BASOPHILS % (AUTO) 0.7 %; EOSINOPHILS # (AUTO) 0.2 10^3/uL (0.0-0.7); EOSINOPHILS % (AUTO) 3.2 %; HCT - HEMATOCRIT 27.4 % (37.0-47.0); HGB - HEMOGLOBIN 9.3 g/dL (12.0-16.0); LYMPHOCYTES # (AUTO) 0.5 10^3/uL (1.5-3.5); LYMPHOCYTES % (AUTO) 7.8 %; MEAN CORPUSCULAR HEMOGLOBIN 29.3 pg (27.0-31.0); MEAN CORPUSCULAR HGB CONC 33.9 g/dL (32.0-36.0); MEAN CORPUSCULAR VOLUME 86.4 fL (81.0-99.0); MEAN PLATELET VOLUME 7.8 fL (7.9-10.8); MONOCYTES # (AUTO) 0.7 10^3/uL (0.0-1.0); MONOCYTES % (AUTO) 12.3 %; NEUTROPHILS # (AUTO) 4.5 10^3/uL (1.5-6.6); PLT - PLATELET COUNT 194 10^3/uL (130-450); RED BLOOD COUNT 3.17 10^6/uL (4.20-5.40); RED CELL DISTRIBUTION WIDTH 16.3 % (12.0-15.0)
[2023-08-07 05:47] LABS: CALCIUM 8.8 mg/dL (8.5-10.3); CREATININE 0.9 mg/dL (0.6-1.3)
[2023-08-07] MEDS: PANTOPRAZOLE 40 MG TABLET PO SCH ×2 (06:26→16:48)
[2023-08-07] MEDS: SODIUM CHLORIDE FLUSH 0.9% 10 ML SYRINGE IVP SCH ×3 (06:29→16:48)
[2023-08-07] MEDS: LACTULOSE 10 GM /15 ML UDC PO SCH ×3 (06:29→20:10)
[2023-08-07] MEDS: LIDOCAINE PATCH 5% TOP SCH (08:35)
[2023-08-07] MEDS: rifAXIMin 550 MG TABLET PO SCH ×2 (08:35→20:09)
[2023-08-07] MEDS ORDERED: SPIRONOLACTONE 25 MG TABLET PO SCH ×2 (09:00→12:00)
[2023-08-07] MEDS: PROPRANOLOL 10 MG TABLET PO SCH ×2 (09:42→20:09)
[2023-08-07] MEDS ORDERED: FUROSEMIDE 20 MG TABLET PO SCH (10:00)
--- NOTE | 2023-08-07 11:54 | PROVIDER PROGRESS NOTE ---
Subjective - Subjective Pt reports feeling: Improved (alert and conversent this am) Objective - Vital Signs/Intake & Output Vital Signs: Vital Signs x48h Temp Pulse Resp BP Pulse Ox 08/07/23 09:20 124/71 08/07/23 08:00 36.7 C 110 H 18 109/68 98 Intake & Output: Intake & Output 08/04/23 08/05/23 08/06/23 08/07/23 23:59 23:59 23:59 23:59 Intake Total 1430 2652 Balance 1430 2652 - Objective General Appearance: positive: Alert, Other (appears chronically ill with end stage liver disease) Eyes Bilateral: positive: PERRL, EOMI, No scleral icterus Respiratory: positive: No respiratory distress Abdomen: positive: Other (soft. distended with ascites. ascites leaking from recent surgical incision) Neurologic/Psychiatric: positive: Oriented x3 - Lab Results Fish Bones: 08/07/23 05:24 08/07/23 05:24 Other Labs: Lab Results x24hrs 08/07/23 08/07/23 08/07/23 Range/Units 05:24 05:24 05:24 WBC 6.0 (4.8-10.8) x10^3/uL RBC 3.17 L (4.20-5.40) 10^6/uL Hgb 9.3 L (12.0-16.0) g/dL Hct 27.4 L (37.0-47.0) % MCV 86.4 (81.0-99.0) fL MCH 29.3 (27.0-31.0) pg MCHC 33.9 (32.0-36.0) g/dL RDW 16.3 H (12.0-15.0) % Plt Count 194 (130-450) 10^3/uL MPV 7.8 L (7.9-10.8) fL Neut # (Auto) 4.5 (1.5-6.6) 10^3/uL Lymph # (Auto) 0.5 L (1.5-3.5) 10^3/uL [place] # (Auto) 0.7 (0.0-1.0) 10^3/uL Eos # (Auto) 0.2 (0.0-0.7) 10^3/uL Baso # (Auto) 0.0 (0.0-0.1) 10^3/uL Absolute Nucleated RBC 0.00 x10^3/uL Nucleated RBC % 0.0 /100WBC Sodium 124 L (135-145) mmol/L Potassium 4.0 (3.5-4.5) mmol/L Chloride 98 L (101-111) mmol/L Carbon Dioxide 18 L (21-32) mmol/L Anion Gap 8.0 (6-13) BUN 34 H (6-20) mg/dL Creatinine 0.9 (0.6-1.3) mg/dL Estimated GFR (MDRD) 65 L (>89) Glucose 123 H (74-104) mg/dL Calcium 8.8 (8.5-10.3) mg/dL Ammonia 103.7 H* (18-72) umol/L Lipase 90 H (11-82) U/L 08/06/23 Range/Units 15:00 WBC (4.8-10.8) x10^3/uL RBC (4.20-5.40) 10^6/uL Hgb (12.0-16.0) g/dL Hct (37.0-47.0) % MCV (81.0-99.0) fL MCH (27.0-31.0) pg MCHC (32.0-36.0) g/dL RDW (12.0-15.0) % Plt Count (130-450) 10^3/uL MPV (7.9-10.8) fL Neut # (Auto) (1.5-6.6) 10^3/uL Lymph # (Auto) (1.5-3.5) 10^3/uL [place] # (Auto) (0.0-1.0) 10^3/uL Eos # (Auto) (0.0-0.7) 10^3/uL Baso # (Auto) (0.0-0.1) 10^3/uL Absolute Nucleated RBC x10^3/uL Nucleated RBC % /100WBC Sodium 126 L (135-145) mmol/L Potassium (3.5-4.5) mmol/L Chloride (101-111) mmol/L Carbon Dioxide (21-32) mmol/L Anion Gap (6-13) BUN (6-20) mg/dL Creatinine (0.6-1.3) mg/dL Estimated GFR (MDRD) (>89) Glucose (74-104) mg/dL Calcium (8.5-10.3) mg/dL Ammonia (18-72) umol/L Lipase (11-82) U/L Sepsis Event Note (H) - Evaluation Current Stage of Sepsis: Ruled out Assessment/Plan - Problem List (1) Hepatic encephalopathy Impression: improved. ascites leaking from recent surgical incision. when stable medically she may be d/c and follow up with her [facility] surgeon recommend abdominal binder and abd dressing changes as needed
[2023-08-07] MEDS: THIAMINE 100 MG TABLET PO SCH (12:41)
[2023-08-07] MEDS: SPIRONOLACTONE 25 MG TABLET PO SCH (12:41)
[2023-08-07] MEDS: PRENATAL VITAMIN TABLET PO SCH (12:41)
--- NOTE | 2023-08-07 13:54 | PROVIDER PROGRESS NOTE ---
Assessment/Plan - Problem List (1) Hepatic encephalopathy Assessment/Plan: Patient presented with an ammonia level of 215 on 08/05, which improved slightly to 90 yesterday 08/06. She was very confused all of yesterday. She was not yet ready for discharge. She was admitted from observation to inpatient status yesterday. Today her ammonia level is again elevated over 100. She is conversant, is oriented x3. She has no memory of the last 3 days however. She is icteric, there is no liver flap on exam today Plan: Continue with po Lactulose TID. The patient insists that she is compliant with it at home therefore she might need a higher dose to take 3 times daily. I will discuss her compliance with her mother, with whom she lives. 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 Today she could not tell me the name of the facility where she is on the transplant list or the name of her Educational Manager Plan: I will restart her Lasix and Spironolactone, at lower doses because of her "soft" blood pressure. Then titrate these doses up as tolerated, watching her BUN/creat I will add oral daily thiamine and vitamin (3) Hyponatremia Assessment/Plan: This is commonly seen in patients with alcoholic liver disease. Plan: We do not want to give her excessive IV hydration using NS to correct this, because she will increase her ascites with IV fluids Continue with the free water restriction Follow serum sodium every 12 hours Her Lasix and Spironolactone will be restarted today, hopefully with that she can get some free water diuresis (4) Prerenal azotemia Assessment/Plan: Her BUN/creatinine ratio has been 34-36/1.0, it remains greater than 20 since admission. All labs were reviewed. She appears volume depleted with skin tenting and small ascites, which had been recently reported We have refrained from starting her on aggressive IV NS because her ascites fluid will reaccumulate Plan: We will promote oral hydration with solute and electrolyte-containing liquids Continue free water restriction If BUN/creatinine ratio rises greater then the current ratio, especially as we restarrt her Lasix and Spirinolactone, then will give 500 cc saline slowly Follow BMP daily (5) Abdominal wall hernia Assessment/Plan: Patient recently underwent surgery for an abdominal hernia. There is still a large portion of her anterior abdominal wall which is soft and reducible. She has a vertical midline surgical scar. There is leakage of serous fluid through the scar. A general surgery consult was requested regarding evaluating if the scar appears healthy. Dr. Kowalski saw the patient and indicated that this is ascites fluid leaking through the scar. He advised dressings and abdominal binder Plan: I will order dressings to absorb the leakage I will order an abdominal binder (6) Anemia Qualifiers: Anemia type: unspecified type Qualified Code(s): D64.9 - Anemia, unspecified Assessment/Plan: Plan: Follow hemoglobin daily. Would transfuse if hemoglobin falls below 7 I will check her iron stores, B12 and folate stores and replace if (7) Cachexia Assessment/Plan: The patient has a BMI of 17. The patient told me today that she is a vegetarian. When I asked her what proteins she eats, she could not respond, appeared to be confused Plan: She needs to be on a hepatic diet which does have protein restrictions. I will add her request to be on a vegetarian diet to her diet order I will order a nutrition consult to give recommendations regarding food choices for her liver disease and her cachexia - Current Meds Current Meds: Current Medications Generic Name Dose Route Start Last Admin Trade Name Jaden PRN Reason Stop Dose Admin Lactulose 30 gm 08/06/23 06:00 08/07/23 06:29 Lactulose 10 Gm /15 Ml Udc PO 30 gm TID PERLA Administration Lidocaine 1 patch 08/06/23 14:21 08/07/23 08:35 Lidocaine Patch 5% TOP 1 patch DAILY PERLA Administration Pantoprazole Sodium 40 mg 08/06/23 16:00 08/07/23 06:26 Pantoprazole 40 Mg Tablet PO 40 mg BIDAC PERLA Administration Multivit/Folic Acid/Iron 1 tab 08/07/23 12:00 08/07/23 12:41 Vitamin Tablet PO 1 tab DAILYWM PERLA Administration Propranolol HCl 20 mg 08/07/23 10:00 08/07/23 09:42 Propranolol 10 Mg Tablet PO 20 mg BID PERLA Administration Rifaximin 550 mg 08/06/23 09:00 08/07/23 08:35 Rifaximin 550 Mg Tablet PO 550 mg BID PERLA Administration Sodium Chloride 10 ml 08/06/23 01:00 08/07/23 08:36 Sodium Chloride Flush 0.9% 10 Ml Syringe IVP 10 ml 0100,0900,1700 PERLA Administration Spironolactone 50 mg 08/07/23 12:00 08/07/23 12:41 Spironolactone 25 Mg Tablet PO 50 mg 1200 PERLA Administration Thiamine HCl 100 mg 08/07/23 12:00 08/07/23 12:41 Thiamine 100 Mg Tablet PO 100 mg DAILY PERLA Administration - Lab Result Fish Bone Diagrams: 08/07/23 05:24 08/07/23 05:24 - Additional Planning My Orders: My Active Orders 08/06/23 14:21 Lidocaine Patch 5% [Lidoderm Patch] 1 patch TOP DAILY traZODone [Desyrel] 50 mg PO HS PRN 08/06/23 14:22 HYDROcod/ACETAM 5/325 [[place] 5/325] 1 tab PO Q8HR PRN 08/06/23 16:00 Pantoprazole [Protonix] 40 mg PO BIDAC 08/07/23 10:00 Propranolol [Inderal] 20 mg PO BID 08/07/23 12:00 Vitamin [Trinatal Rx 1] 1 tab PO DAILYWM Spironolactone [Aldactone] 50 mg PO 1200 Thiamine [Vitamin B-1] 100 mg PO DAILY 08/07/23 13:11 Abdominal Binder [RC] DAILY 08/07/23 13:50 Nutrition Consult [CONS] Routine 08/07/23 21:00 Furosemide [Lasix] 20 mg PO BID 08/08/23 05:00 CBC W/O DIFF (HEMOGRAM) [HEME] DAILYLAB CMP [COMPREHENSIVE METABOLIC PANEL] [CHEM] DAILYLAB MAGNESIUM [CHEM] DAILYLAB 08/09/23 05:00 CBC W/O DIFF (HEMOGRAM) [HEME] DAILYLAB CMP [COMPREHENSIVE METABOLIC PANEL] [CHEM] DAILYLAB MAGNESIUM [CHEM] DAILYLAB 08/10/23 05:00 CBC W/O DIFF (HEMOGRAM) [HEME] DAILYLAB CMP [COMPREHENSIVE METABOLIC PANEL] [CHEM] DAILYLAB 08/11/23 05:00 CBC W/O DIFF (HEMOGRAM) [HEME] DAILYLAB CMP [COMPREHENSIVE METABOLIC PANEL] [CHEM] DAILYLAB Subjective - Subjective Patient Reports: Feeling Better (She says she cannot remember the last 2 to 3 days whatsoever. She says she feels better, denies any headache, nausea vomiting, pain anywhere) Objective Vital Signs: Vital Signs - 24 hr 08/06/23 08/06/23 08/07/23 16:00 23:46 08:00 Temperature 37.0 C 36.8 C 36.7 C Heart Rate [ 118 H 111 H 110 H Brachial] Respiratory 20 20 18 Rate Blood Pressure 116/75 124/69 109/68 [Right Brachial artery] O2 Saturation 20 L 99 98 08/07/23 09:20 Temperature Heart Rate [ Brachial] Respiratory Rate Blood Pressure 124/71 [Right Brachial artery] O2 Saturation Oxygen O2 Source Room air I&O (Last 24 Hrs): Intake and Output Totals x24h 08/05/23 08/06/23 08/07/23 23:59 23:59 23:59 Intake Total 1430 3072 Balance 1430 3072 General: Alert, No acute distress, Other (Cachectic) HEENT: Mucous membr. moist/pink, Other (Poor dentition. Sclerae are icteric. No nystagmus.) Neck: Supple, No JVD Neuro: Alert, Non Focal Cardiovascular: Regular rate, No murmurs Respiratory: No respiratory distress, Breath sounds nml Abdomen: Soft, Other (Has a karge abd hernia (approx 30x30 cm), with a vertical surgical scar with staple, leaking serous fluid, non-tender, no purulence.) Extremities: No clubbing, No edema, No tenderness/swelling, Other (Muscle wasting) - Results Results: Laboratory Results WBC 6.0 x10^3/uL (4.8-10.8) 08/07/23 05:24 RBC 3.17 10^6/uL (4.20-5.40) L 08/07/23 05:24 Hgb 9.3 g/dL (12.0-16.0) L 08/07/23 05:24 Hct 27.4 % (37.0-47.0) L 08/07/23 05:24 MCV 86.4 fL (81.0-99.0) 08/07/23 05:24 MCH 29.3 pg (27.0-31.0) 08/07/23 05:24 MCHC 33.9 g/dL (32.0-36.0) 08/07/23 05:24 RDW 16.3 % (12.0-15.0) H 08/07/23 05:24 Plt Count 194 10^3/uL (130-450) 08/07/23 05:24 MPV 7.8 fL (7.9-10.8) L 08/07/23 05:24 Neut # (Auto) 4.5 10^3/uL (1.5-6.6) 08/07/23 05:24 Lymph # (Auto) 0.5 10^3/uL (1.5-3.5) L 08/07/23 05:24 [place] # (Auto) 0.7 10^3/uL (0.0-1.0) 08/07/23 05:24 Eos # (Auto) 0.2 10^3/uL (0.0-0.7) 08/07/23 05:24 Baso # (Auto) 0.0 10^3/uL (0.0-0.1) 08/07/23 05:24 Absolute Nucleated RBC 0.00 x10^3/uL 08/07/23 05:24 Nucleated RBC % 0.0 /100WBC 08/07/23 05:24 Sodium 124 mmol/L (135-145) L 08/07/23 05:24 Potassium 4.0 mmol/L (3.5-4.5) 08/07/23 05:24 Chloride 98 mmol/L (101-111) L 08/07/23 05:24 Carbon Dioxide 18 mmol/L (21-32) L 08/07/23 05:24 Anion Gap 8.0 (6-13) 08/07/23 05:24 BUN 34 mg/dL (6-20) H 08/07/23 05:24 Creatinine 0.9 mg/dL (0.6-1.3) 08/07/23 05:24 Estimated GFR (MDRD) 65 (>89) L 08/07/23 05:24 Glucose 123 mg/dL (74-104) H 08/07/23 05:24 Calcium 8.8 mg/dL (8.5-10.3) 08/07/23 05:24 Total Bilirubin 1.5 mg/dL (0.2-1.0) H 08/06/23 05:21 AST 40 IU/L (10-42) 08/06/23 05:21 ALT 31 IU/L (10-60) 08/06/23 05:21 Alkaline Phosphatase 166 IU/L (42-121) H 08/06/23 05:21 Ammonia 103.7 umol/L (18-72) H* 08/07/23 05:24 Total Protein 6.6 g/dL (6.4-8.9) 08/06/23 05:21 Albumin 3.4 g/dL (3.2-5.5) 08/06/23 05:21 Globulin 3.2 g/dL (2.1-4.2) 08/06/23 05:21 Albumin/Globulin Ratio 1.1 (1.0-2.2) 08/06/23 05:21 Lipase 90 U/L (11-82) H 08/07/23 05:24 Urine Color YELLOW 08/05/23 21:00 Urine Clarity CLEAR (CLEAR) 08/05/23 21:00 Urine pH 6.5 PH (5.0-7.5) 08/05/23 21:00 Ur Specific [place] 1.010 (1.002-1.030) 08/05/23 21:00 Urine Protein NEGATIVE mg/dL (NEGATIVE) 08/05/23 21:00 Urine Glucose (UA) NEGATIVE mg/dL (NEGATIVE) 08/05/23 21:00 Urine Ketones NEGATIVE mg/dL (NEGATIVE) 08/05/23 21:00 Urine Occult Blood NEGATIVE (NEGATIVE) 08/05/23 21:00 Urine Nitrite NEGATIVE (NEGATIVE) 08/05/23 21:00 Urine Bilirubin NEGATIVE (NEGATIVE) 08/05/23 21:00 Urine Urobilinogen 1 (NORMAL) E.U./dL (NORMAL) 08/05/23 21:00 Ur Leukocyte Esterase NEGATIVE (NEGATIVE) 08/05/23 21:00 Ur Microscopic Review NOT INDICATED 08/05/23 21:00 Urine Culture Comments NOT INDICATED 08/05/23 21:00 Salicylates < 1.5 mg/dL 08/05/23 20:20 Urine Opiates Screen POSITIVE (NEGATIVE) H 08/05/23 21:00 Ur Oxycodone Screen NEGATIVE (NEGATIVE) 08/05/23 21:00 Urine Methadone Screen NEGATIVE (NEGATIVE) 08/05/23 21:00 Ur Propoxyphene Screen NEGATIVE (NEGATIVE) 10/20/23 21:00 Acetaminophen < 0.1 ug/mL 08/05/23 20:20 Ur Barbiturates Screen NEGATIVE (NEGATIVE) 08/05/23 21:00 Ur Tricyclics Screen NEGATIVE (NEGATIVE) 08/05/23 21:00 Ur Phencyclidine Scrn NEGATIVE (NEGATIVE) 08/05/23 21:00 Ur Amphetamine Screen NEGATIVE (NEGATIVE) 08/05/23 21:00 U Methamphetamines Scrn NEGATIVE (NEGATIVE) 08/05/23 21:00 U Benzodiazepines Scrn NEGATIVE (NEGATIVE) 08/05/23 21:00 Urine Cocaine Screen NEGATIVE (NEGATIVE) 08/05/23 21:00 U Cannabinoids Screen NEGATIVE (NEGATIVE) 08/05/23 21:00 Ethyl Alcohol < 10.0 mg/dL 08/05/23 20:20 Sepsis Event Note (H) - Evaluation Current Stage of Sepsis: Ruled out
[2023-08-07] MEDS: FUROSEMIDE 20 MG TABLET PO SCH (20:09)
[2023-08-08 06:05] LABS: HCT - HEMATOCRIT 26.6 % (37.0-47.0); HGB - HEMOGLOBIN 9.1 g/dL (12.0-16.0); MEAN CORPUSCULAR HEMOGLOBIN 29.7 pg (27.0-31.0); MEAN CORPUSCULAR HGB CONC 34.2 g/dL (32.0-36.0); MEAN CORPUSCULAR VOLUME 86.9 fL (81.0-99.0); MEAN PLATELET VOLUME 8.4 fL (7.9-10.8); RED BLOOD COUNT 3.06 10^6/uL (4.20-5.40); RED CELL DISTRIBUTION WIDTH 16.2 % (12.0-15.0); WHITE BLOOD COUNT 7.4 x10^3/uL (4.8-10.8)
[2023-08-08 06:14] LABS: MAGNESIUM 1.6 mg/dL (1.7-2.3)
[2023-08-08 06:17] LABS: BILIRUBIN,TOTAL 0.8 mg/dL (0.2-1.0); CALCIUM 8.6 mg/dL (8.5-10.3); CREATININE 0.9 mg/dL (0.6-1.3); POTASSIUM 3.9 mmol/L (3.5-4.5); TOTAL PROTEIN 5.9 g/dL (6.4-8.9)
[2023-08-08] MEDS: PANTOPRAZOLE 40 MG TABLET PO SCH ×2 (06:39→17:05)
[2023-08-08] MEDS: LACTULOSE 10 GM /15 ML UDC PO SCH ×3 (06:40→22:51)
[2023-08-08] MEDS: SODIUM CHLORIDE FLUSH 0.9% 10 ML SYRINGE IVP SCH ×4 (06:40→23:23)
[2023-08-08] MEDS: PRENATAL VITAMIN TABLET PO SCH (09:33)
[2023-08-08] MEDS: LIDOCAINE PATCH 5% TOP SCH (09:34)
[2023-08-08] MEDS: THIAMINE 100 MG TABLET PO SCH (09:34)
[2023-08-08] MEDS: FUROSEMIDE 20 MG TABLET PO SCH ×2 (09:34→22:50)
[2023-08-08] MEDS: rifAXIMin 550 MG TABLET PO SCH ×2 (09:34→22:51)
[2023-08-08] MEDS: PROPRANOLOL 10 MG TABLET PO SCH ×2 (09:34→22:50)
[2023-08-08] MEDS ORDERED: SODIUM CHLORIDE 0.9% 1,000 ML IV SCH (10:00)
[2023-08-08] MEDS ORDERED: MAGNESIUM OXIDE 400 MG TABLET PO SCH (12:00)
[2023-08-08] MEDS: SPIRONOLACTONE 25 MG TABLET PO SCH (12:07)
--- NOTE | 2023-08-08 13:16 | PROVIDER PROGRESS NOTE ---
Assessment/Plan - Problem List (1) Hepatic encephalopathy Assessment/Plan: Patient presented with an ammonia level of 215 on 08/05, and she was very confused She was not yet ready for discharge and was admitted from observation to inpatient status. Yesterday her ammonia level was elevated over 100. Today ammonia level 58. She is conversant, is oriented x3 since yesterday. She has no memory of the prior 3 days however. She is icteric, there is no liver flap on exam today Yesterday the patient wanted to leave. She had called her parents and they were both at bedside. Yesterday the pt voiced that she "is leaving" because she has "had enough of this". I asked what she means, enough of what, and she could not say what. Her mother then said that the patient told them, as they entered her room, that she wants no more hospitals and transfusions. I reviewed with the patient and the parents that she has a high ammonia level and is not able to make decisions for herself currently because of this lab abnormality. Decisions about leaving AMA cannot be up to her, but up to her closest next of kin which are her parents. I then advised the parents that she should not be taken from the hospital AMA by them. The father nodded to me in agreement. If the patient has an improved ammonia level and then feels that she is "ready to end it", which she was repeating during that visit, then she can rationally decide if she wants to stop treatment for liver cirrhosis and we would then treat her with a focus on comfort and end-of-life care. I ordered a MH eval to be done when she is medically cleared. Plan: Continue with po Lactulose TID. The patient insists that she is compliant with it at home therefore she might need a higher dose to take 3 times daily. 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 However, she could not tell me the name of the facility where she is on the transplant list or the name of her Tin Worker Plan: I restarted her Lasix and Spironolactone, at lower doses because of her "soft" blood pressure. Then will titrate these doses up as tolerated, watching her BUN/creat I added oral daily thiamine and vitamin (3) Hyponatremia Assessment/Plan: This is commonly seen in patients with alcoholic liver disease. Yesterday she took in 4400 cc of Gatorade orally which had very low salt. Today her sodium level has decreased. Plan: We do not want to give her excessive IV hydration using NS to correct this, because she will increase her ascites with IV fluids Continue with the free water restriction. Nutrition consult ordered to help with this restriction Follow serum sodium every 12 hours Her Lasix and Spironolactone were restarted, hopefully with that she can get some free water diuresis (4) Prerenal azotemia Assessment/Plan: Her BUN/creatinine ratio has been 34-36/1.0, it remains greater than 20 since admission. All labs were reviewed. She appears volume depleted with skin tenting and small ascites, which had been recently reported We have refrained from starting her on aggressive IV NS because her ascites fluid will reaccumulate Plan: We will promote oral hydration with solute and electrolyte-containing liquids Continue free water restriction If BUN/creatinine ratio rises greater then the current ratio, especially as we restarrt her Lasix and Spirinolactone, then will give 500 cc saline slowly Follow BMP daily (5) Abdominal wall hernia Assessment/Plan: Patient recently underwent surgery for an abdominal hernia. There is still a large portion of her anterior abdominal wall which is soft and reducible. She has a vertical midline surgical scar. There is leakage of serous fluid through the scar. A general surgery consult was requested regarding evaluating if the scar appears healthy. Dr. Kowalski saw the patient and indicated that this is ascites fluid leaking through the scar. He advised dressings and abdominal binder Plan: I ordered dressings to absorb the leakage I ordered an abdominal binder (6) Anemia Qualifiers: Anemia type: unspecified type Qualified Code(s): D64.9 - Anemia, unspecified Assessment/Plan: Plan: Follow hemoglobin daily. Would transfuse if hemoglobin falls below 7 I will check her iron stores, B12 and folate stores and replace if low (7) Cachexia Assessment/Plan: The patient has a BMI of 18. The patient told me today that she is a vegetarian. When I asked her what proteins she eats, she could not respond, appeared to be confused Plan: She needs to be on a hepatic diet which does have protein restrictions. I added her request to be on a vegetarian diet to her diet order [employer] consult (8) Severe protein calorie malnutrition The patient has significant muscle wasting and loss of subcutaneous fat. She has had a weight loss of greater than 5% in a month (8% weight loss in 1 month f rom 59 kg to 54 kg which is down 5 kg). She also has acute and chronic conditions: Acute surgery of the abdomen and chronic alcoholic cirrhosis Plan: [employer] consult Will add protein supplement drinks and the administration specialist recommended small frequent meals - Current Meds Current Meds: Current Medications Generic Name Dose Route Start Last Admin Trade Name Jaden PRN Reason Stop Dose Admin Furosemide 20 mg 08/07/23 21:00 08/08/23 09:34 Furosemide 20 Mg Tablet PO 20 mg BID PERLA Administration Sodium Chloride 1,000 mls @ 83.333 mls/hr 08/08/23 10:00 08/08/23 09:50 Normal Saline 0.9% IV 08/08/23 21:59 83.333 mls/hr .Q12H PERLA Administration Lactulose 30 gm 08/06/23 06:00 08/08/23 06:40 Lactulose 10 Gm /15 Ml Udc PO 30 gm TID PERLA Administration Lidocaine 1 patch 08/06/23 14:21 08/08/23 09:34 Lidocaine Patch 5% TOP 1 patch DAILY PERLA Administration Magnesium Oxide 400 mg 08/08/23 12:00 08/08/23 12:07 Magnesium Oxide 400 Mg Tablet PO 400 mg DAILYWM PERLA Administration Pantoprazole Sodium 40 mg 08/06/23 16:00 08/08/23 06:39 Pantoprazole 40 Mg Tablet PO 40 mg BIDAC PERLA Administration Multivit/Folic Acid/Iron 1 tab 08/07/23 12:00 08/08/23 09:33 Vitamin Tablet PO 1 tab DAILYWM PERLA Administration Propranolol HCl 20 mg 08/07/23 10:00 08/08/23 09:34 Propranolol 10 Mg Tablet PO 20 mg BID PERLA Administration Rifaximin 550 mg 08/06/23 09:00 08/08/23 09:34 Rifaximin 550 Mg Tablet PO 550 mg BID PERLA Administration Sodium Chloride 10 ml 08/06/23 01:00 08/08/23 09:35 Sodium Chloride Flush 0.9% 10 Ml Syringe IVP 10 ml 0100,0900,1700 PERLA Administration Spironolactone 50 mg 08/07/23 12:00 08/08/23 12:07 Spironolactone 25 Mg Tablet PO 50 mg 1200 PERLA Administration Thiamine HCl 100 mg 08/07/23 12:00 08/08/23 09:34 Thiamine 100 Mg Tablet PO 100 mg DAILY PERLA Administration - Lab Result Fish Bone Diagrams: 08/08/23 05:29 08/08/23 15:15 - Additional Planning My Orders: My Active Orders 08/07/23 13:11 Abdominal Binder [RC] DAILY 08/07/23 13:50 Nutrition Consult [CONS] Routine 08/07/23 21:00 Furosemide [Lasix] 20 mg PO BID 08/08/23 10:00 Sodium Chloride 0.9% [Normal Saline 0.9%] 1,000 ml IV 83.333 mls/hr 08/08/23 12:00 Magnesium Oxide [Mag Ox] 400 mg PO DAILYWM 08/08/23 15:00 SODIUM [CHEM] Timed 08/09/23 05:00 AMMONIA [CHEM] DAILYLAB CBC - COMP BLD CT W/AUTO DIFF [HEME] DAILYLAB CMP [COMPREHENSIVE METABOLIC PANEL] [CHEM] DAILYLAB MAGNESIUM [CHEM] DAILYLAB 08/10/23 05:00 AMMONIA [CHEM] DAILYLAB CBC - COMP BLD CT W/AUTO DIFF [HEME] DAILYLAB CMP [COMPREHENSIVE METABOLIC PANEL] [CHEM] DAILYLAB 08/11/23 05:00 AMMONIA [CHEM] DAILYLAB CBC - COMP BLD CT W/AUTO DIFF [HEME] DAILYLAB CMP [COMPREHENSIVE METABOLIC PANEL] [CHEM] DAILYLAB Subjective - Subjective Patient Reports: Feeling Better, Resting Comfortably, No Complaints Objective Vital Signs: Vital Signs - 24 hr 08/07/23 08/07/23 08/08/23 16:00 20:05 08:00 Temperature 36.9 C 36.6 C 36.6 C Heart Rate [ 85 82 70 Brachial] Respiratory 16 17 20 Rate Blood Pressure 99/47 L 107/54 L 98/52 L [Right Brachial artery] O2 Saturation 99 100 99 08/08/23 08:36 Temperature Heart Rate [ Brachial] Respiratory Rate Blood Pressure 97/44 L [Right Brachial artery] O2 Saturation Oxygen O2 Source Room air I&O (Last 24 Hrs): Intake and Output Totals x24h 10/21/23 10/22/23 10/23/23 23:59 23:59 23:59 Intake Total 1430 4438 2089 Balance 1430 4438 2089 General: Alert, Other (Cacectic) HEENT: Mucous membr. moist/pink, Other Neck: Supple, No JVD Neuro: Alert, Disoriented, Non Focal Cardiovascular: Regular rate, No murmurs Respiratory: No respiratory distress, Breath sounds nml Abdomen: Normal bowel sounds, Soft, No tenderness, Other (Large ventral hernia, soft adrian vertically, leakage of serous fluid through the adrian) Extremities: No clubbing, No edema, Other ((+) skin tenting) Skin: No rashes ([place]) - Results Results: Laboratory Results WBC 7.4 x10^3/uL (4.8-10.8) 08/08/23 05:29 RBC 3.06 10^6/uL (4.20-5.40) L 08/08/23 05:29 Hgb 9.1 g/dL (12.0-16.0) L 08/08/23 05:29 Hct 26.6 % (37.0-47.0) L 08/08/23 05:29 MCV 86.9 fL (81.0-99.0) 08/08/23 05:29 MCH 29.7 pg (27.0-31.0) 08/08/23 05:29 MCHC 34.2 g/dL (32.0-36.0) 08/08/23 05:29 RDW 16.2 % (12.0-15.0) H 08/08/23 05:29 Plt Count 197 10^3/uL (130-450) 08/08/23 05:29 MPV 8.4 fL (7.9-10.8) 08/08/23 05:29 Neut # (Auto) 4.5 10^3/uL (1.5-6.6) 08/07/23 05:24 Lymph # (Auto) 0.5 10^3/uL (1.5-3.5) L 08/07/23 05:24 [place] # (Auto) 0.7 10^3/uL (0.0-1.0) 08/07/23 05:24 Eos # (Auto) 0.2 10^3/uL (0.0-0.7) 08/07/23 05:24 Baso # (Auto) 0.0 10^3/uL (0.0-0.1) 08/07/23 05:24 Absolute Nucleated RBC 0.00 x10^3/uL 08/07/23 05:24 Nucleated RBC % 0.0 /100WBC 08/07/23 05:24 Sodium 120 mmol/L (135-145) L* 08/08/23 05:29 Potassium 3.9 mmol/L (3.5-4.5) 08/08/23 05:29 Chloride 95 mmol/L (101-111) L 08/08/23 05:29 Carbon Dioxide 16 mmol/L (21-32) L 08/08/23 05:29 Anion Gap 9.0 (6-13) 08/08/23 05:29 BUN 26 mg/dL (6-20) H 08/08/23 05:29 Creatinine 0.9 mg/dL (0.6-1.3) 08/08/23 05:29 Estimated GFR (MDRD) 65 (>89) L 08/08/23 05:29 Glucose 103 mg/dL (74-104) 08/08/23 05:29 Calcium 8.6 mg/dL (8.5-10.3) 08/08/23 05:29 Magnesium 1.6 mg/dL (1.7-2.3) L 08/08/23 05:29 Total Bilirubin 0.8 mg/dL (0.2-1.0) 08/08/23 05:29 AST 37 IU/L (10-42) 08/08/23 05:29 ALT 27 IU/L (10-60) 08/08/23 05:29 Alkaline Phosphatase 150 IU/L (42-121) H 08/08/23 05:29 Ammonia 58.7 umol/L (18-72) 08/08/23 09:40 Total Protein 5.9 g/dL (6.4-8.9) L 08/08/23 05:29 Albumin 3.0 g/dL (3.2-5.5) L 08/08/23 05:29 Globulin 2.9 g/dL (2.1-4.2) 08/08/23 05:29 Albumin/Globulin Ratio 1.0 (1.0-2.2) 08/08/23 05:29 Lipase 90 U/L (11-82) H 08/07/23 05:24 Urine Color YELLOW 08/05/23 21:00 Urine Clarity CLEAR (CLEAR) 08/05/23 21:00 Urine pH 6.5 PH (5.0-7.5) 08/05/23 21:00 Ur Specific [place] 1.010 (1.002-1.030) 08/05/23 21:00 Urine Protein NEGATIVE mg/dL (NEGATIVE) 08/05/23 21:00 Urine Glucose (UA) NEGATIVE mg/dL (NEGATIVE) 08/05/23 21:00 Urine Ketones NEGATIVE mg/dL (NEGATIVE) 08/05/23 21:00 Urine Occult Blood NEGATIVE (NEGATIVE) 08/05/23 21:00 Urine Nitrite NEGATIVE (NEGATIVE) 08/05/23 21:00 Urine Bilirubin NEGATIVE (NEGATIVE) 08/05/23 21:00 Urine Urobilinogen 1 (NORMAL) E.U./dL (NORMAL) 08/05/23 21:00 Ur Leukocyte Esterase NEGATIVE (NEGATIVE) 08/05/23 21:00 Ur Microscopic Review NOT INDICATED 08/05/23 21:00 Urine Culture Comments NOT INDICATED 08/05/23 21:00 Salicylates < 1.5 mg/dL 08/05/23 20:20 Urine Opiates Screen POSITIVE (NEGATIVE) H 08/05/23 21:00 Ur Oxycodone Screen NEGATIVE (NEGATIVE) 08/05/23 21:00 Urine Methadone Screen NEGATIVE (NEGATIVE) 08/05/23 21:00 Ur Propoxyphene Screen NEGATIVE (NEGATIVE) 08/05/23 21:00 Acetaminophen < 0.1 ug/mL 08/05/23 20:20 Ur Barbiturates Screen NEGATIVE (NEGATIVE) 08/05/23 21:00 Ur Tricyclics Screen NEGATIVE (NEGATIVE) 08/05/23 21:00 Ur Phencyclidine Scrn NEGATIVE (NEGATIVE) 08/05/23 21:00 Ur Amphetamine Screen NEGATIVE (NEGATIVE) 08/05/23 21:00 U Methamphetamines Scrn NEGATIVE (NEGATIVE) 08/05/23 21:00 U Benzodiazepines Scrn NEGATIVE (NEGATIVE) 08/05/23 21:00 Urine Cocaine Screen NEGATIVE (NEGATIVE) 08/05/23 21:00 U Cannabinoids Screen NEGATIVE (NEGATIVE) 08/05/23 21:00 Ethyl Alcohol < 10.0 mg/dL 08/05/23 20:20 Sepsis Event Note (H) - Evaluation Current Stage of Sepsis: Ruled out
--- NOTE | 2023-08-08 20:03 | PROVIDER PROGRESS NOTE ---
Subjective - General Admit Date: 08/06/23 Procedure Date: 07/27/23 Post Op Days: 12 Procedure Performed: "ventral hernia repair" - Other Other Information/Narrative: Patient reports she had a "hernia surgery" at [facility] 10 days ago because she had a poorly healing wound on her anterior abdominal wall. No operative report is currently available. Patient reports she is on the transplant list at [facility]. Objective - Patient Data Reviewed Vital Signs: Yes Vital Signs: Vital Signs x48h Temp Pulse Resp BP Pulse Ox 08/08/23 16:00 36.6 C 72 16 85/52 L 100 Weight: Weight 08/06/23 08/07/23 08/08/23 23:59 23:59 23:59 Weight (kg) 45.5 kg 54 kg Intake & Output: Intake and Output Totals x24h 08/06/23 08/07/23 08/08/23 23:59 23:59 23:59 Intake Total 1430 4438 2430 Balance 1430 4438 2430 - Lab Results Lab Results: 08/08/23 05:29 08/08/23 15:15 Other Lab Results: Lab Results x24hrs 08/08/23 08/08/23 08/08/23 Range/Units 15:15 09:40 05:29 WBC (4.8-10.8) x10^3/uL RBC (4.20-5.40) 10^6/uL Hgb (12.0-16.0) g/dL Hct (37.0-47.0) % MCV (81.0-99.0) fL MCH (27.0-31.0) pg MCHC (32.0-36.0) g/dL RDW (12.0-15.0) % Plt Count (130-450) 10^3/uL MPV (7.9-10.8) fL Sodium 120 L* 120 L* (135-145) mmol/L Potassium 3.9 (3.5-4.5) mmol/L Chloride 95 L (101-111) mmol/L Carbon Dioxide 16 L (21-32) mmol/L Anion Gap 9.0 (6-13) BUN 26 H (6-20) mg/dL Creatinine 0.9 (0.6-1.3) mg/dL Estimated GFR (MDRD) 65 L (>89) Glucose 103 (74-104) mg/dL Calcium 8.6 (8.5-10.3) mg/dL Magnesium 1.6 L (1.7-2.3) mg/dL Total Bilirubin 0.8 (0.2-1.0) mg/dL AST 37 (10-42) IU/L ALT 27 (10-60) IU/L Alkaline Phosphatase 150 H (42-121) IU/L Ammonia 58.7 (18-72) umol/L Total Protein 5.9 L (6.4-8.9) g/dL Albumin 3.0 L (3.2-5.5) g/dL Globulin 2.9 (2.1-4.2) g/dL Albumin/Globulin Ratio 1.0 (1.0-2.2) 08/08/ Range/Units 05:29 WBC 7.4 (4.8-10.8) x10^3/uL RBC 3.06 L (4.20-5.40) 10^6/uL Hgb 9.1 L (12.0-16.0) g/dL Hct 26.6 L (37.0-47.0) % MCV 86.9 (81.0-99.0) fL MCH 29.7 (27.0-31.0) pg MCHC 34.2 (32.0-36.0) g/dL RDW 16.2 H (12.0-15.0) % Plt Count 197 (130-450) 10^3/uL MPV 8.4 (7.9-10.8) fL Sodium (135-145) mmol/L Potassium (3.5-4.5) mmol/L Chloride (101-111) mmol/L Carbon Dioxide (21-32) mmol/L Anion Gap (6-13) BUN (6-20) mg/dL Creatinine (0.6-1.3) mg/dL Estimated GFR (MDRD) (>89) Glucose (74-104) mg/dL Calcium (8.5-10.3) mg/dL Magnesium (1.7-2.3) mg/dL Total Bilirubin (0.2-1.0) mg/dL AST (10-42) IU/L ALT (10-60) IU/L Alkaline Phosphatase (42-121) IU/L Ammonia (18-72) umol/L Total Protein (6.4-8.9) g/dL Albumin (3.2-5.5) g/dL Globulin (2.1-4.2) g/dL Albumin/Globulin Ratio (1.0-2.2) - Current Medications Current Medications: Current Medications Generic Name Dose Route Start Last Admin Trade Name Nickq PRN Reason Stop Dose Admin Furosemide 20 mg 08/07/23 21:00 08/08/23 09:34 Furosemide 20 Mg Tablet PO 20 mg BID PERLA Administration Sodium Chloride 1,000 mls @ 83.333 mls/hr 08/08/23 10:00 08/08/23 09:50 Normal Saline 0.9% IV 08/08/23 21:59 83.333 mls/hr .Q12H PERLA Administration Lactulose 30 gm 08/06/23 06:00 08/08/23 14:01 Lactulose 10 Gm /15 Ml Udc PO 30 gm TID PERLA Administration Lidocaine 1 patch 08/06/23 14:21 08/08/23 09:34 Lidocaine Patch 5% TOP 1 patch DAILY PERLA Administration Magnesium Oxide 400 mg 08/08/23 12:00 08/08/23 12:07 Magnesium Oxide 400 Mg Tablet PO 400 mg DAILYWM PERLA Administration Pantoprazole Sodium 40 mg 08/06/23 16:00 08/08/23 17:05 Pantoprazole 40 Mg Tablet PO 40 mg BIDAC PERLA Administration Multivit/Folic Acid/Iron 1 tab 08/07/23 12:00 08/08/23 09:33 Vitamin Tablet PO 1 tab DAILYWM PERLA Administration Propranolol HCl 20 mg 08/07/23 10:00 08/08/23 09:34 Propranolol 10 Mg Tablet PO 20 mg BID PERLA Administration Rifaximin 550 mg 08/06/23 09:00 08/08/23 09:34 Rifaximin 550 Mg Tablet PO 550 mg BID PERLA Administration Sodium Chloride 10 ml 08/06/23 01:00 08/08/23 17:05 Sodium Chloride Flush 0.9% 10 Ml Syringe IVP Not Given 0100,0900,1700 PERLA Spironolactone 50 mg 08/07/23 12:00 08/08/23 12:07 Spironolactone 25 Mg Tablet PO 50 mg 1200 PERLA Administration Thiamine HCl 100 mg 08/07/23 12:00 08/08/23 09:34 Thiamine 100 Mg Tablet PO 100 mg DAILY PERLA Administration - Physical Exam Wound/Incisions: positive: Other (open, dehisced, bowel outside of abdomen) General Appearance: positive: No acute distress, Other (ill appearing, cachectic) Eyes Bilateral: positive: PERRL ENT: positive: No signs of dehydration Neck: positive: Trachea midline Respiratory: positive: No respiratory distress Cardiovascular: positive: Regular rate & rhythm Abdomen: positive: Other (dehisced wound with evisceration, minimal ttp) Skin: positive: No rash Extremities: positive: Full ROM Neurologic/Psychiatric: positive: Oriented x3 Impression/Plan - Problem List Problem List: 53 y/o F with end stage liver disease, s/p ventral hernia repair vs skin excision of abdominal wall approximately 10 days ago at an outside hospital - working to obtain old operative report - patient states previous surgery was because "skin was very thin and not healing" - patient states she is on transplant list at - She is now a very high risk patient requiring an emergent surgery for dehiscence and evisceration. This procedure stands little chance of being successful in the senior living given the patient's very poor overall health, with ESLD, high MELDNa score of at least 22 (no INR done this admission), recent worsening of hepatic encephalopathy, and malnutrition. I explained she is high risk for surgery and were this not an emergency, we would not offer surgery at our facility. I explained she is at high risk of having a worsened status after surgery and of . She voiced understanding, her questions were answered, and she wished to proceed with surgery at this time. A consent was signed by the patient. She is alert and oriented and seems able to sign consent on her on behalf to myself and nursing staff present at this time. - She may well benefit from transfer to a higher level of care in the next 24 hours given her medical and surgical complexity.
[2023-08-08] MEDS ORDERED: fentaNYL 100 MCG/2 ML VIAL ONE (20:32)
--- NOTE | 2023-08-08 20:32 | ANESTHESIA ---
Pre-Anesthesia VS, & Labs - Diagnosis Diagnosis recent ventral surgery. surgery not done at [facility]. she as end stage liver disease and ascites wound dehiscence - Procedure exploratory laparotomy Vital Signs: Temp Pulse Resp BP Pulse Ox O2 Flow Rate 36.6 C 72 16 85/52 L 100 08/08/23 16:00 08/08/23 16:00 08/08/23 16:00 08/08/23 16:00 08/08/23 16:00 Height: 5 ft 8 in Weight (kg): 54 kg Body Mass Index: 18.1 BMI Classification: Underweight - NPO Other (dinner at 5pm, rice and tofu) - Is Patient ?: No - Lab Results Current Lab Results: Laboratory Tests 08/08/23 15:15: Sodium 120 L* 08/08/23 09:40: Ammonia 58.7 08/08/23 05:29: Sodium 120 L*, Potassium 3.9, Chloride 95 L, Carbon Dioxide 16 L , Anion Gap 9.0, BUN 26 H, Creatinine 0.9, Estimated GFR (MDRD) 65 L, Glucose 103, Calcium 8.6, Magnesium 1.6 L, Total Bilirubin 0.8, AST 37, ALT 27, Alkaline Phosphatase 150 H, Total Protein 5.9 L, Albumin 3.0 L, Globulin 2.9, Albumin/Globulin Ratio 1.0 08/08/23 05:29: WBC 7.4, RBC 3.06 L, Hgb 9.1 L, Hct 26.6 L, MCV 86.9, MCH 29.7, MCHC 34.2, RDW 16.2 H, Plt Count 197, MPV 8.4 08/07/23 05:24: Sodium 124 L, Potassium 4.0, Chloride 98 L, Carbon Dioxide 18 L, Anion Gap 8.0, BUN 34 H, Creatinine 0.9, Estimated GFR (MDRD) 65 L, Glucose 123 H, Calcium 8.8, Lipase 90 H 08/07/23 05:24: WBC 6.0, RBC 3.17 L, Hgb 9.3 L, Hct 27.4 L, MCV 86.4, MCH 29.3, MCHC 33.9, RDW 16.3 H, Plt Count 194, MPV 7.8 L, Neut # (Auto) 4.5, Lymph # (Auto) 0.5 L, [place] # (Auto) 0.7, Eos # (Auto) 0.2, Baso # (Auto) 0.0, Absolute Nucleated RBC 0.00, Nucleated RBC % 0.0 08/07/23 05:24: Ammonia 103.7 H* 08/06/23 15:00: Sodium 126 L 08/06/23 05:21: Ammonia 99.9 H* 08/06/23 05:21: Sodium 126 L, Potassium 5.0 H, Chloride 99 L, Carbon Dioxide 18 L, Anion Gap 9.0, BUN 36 H, Creatinine 1.2, Estimated GFR (MDRD) 47 L, Glucose 98, Calcium 9.5, Total Bilirubin 1.5 H, AST 40, ALT 31, Alkaline Phosphatase 166 H, Total Protein 6.6, Albumin 3.4, Globulin 3.2, Albumin/Globulin Ratio 1.1 08/06/23 05:21: WBC 6.4, RBC 3.45 L, Hgb 10.3 L, Hct 30.1 L, MCV 87.2, MCH 29.9, MCHC 34.2, RDW 16.8 H, Plt Count 208, MPV 7.8 L, Neut # (Auto) 4.8, Lymph # (Auto) 0.5 L, [place] # (Auto) 0.8, Eos # (Auto) 0.2, Baso # (Auto) 0.1, Absolute Nucleated RBC 0.00, Nucleated RBC % 0.0 08/05/23 21:00: Urine Opiates Screen POSITIVE H, Ur Oxycodone Screen NEGATIVE, Urine Methadone Screen NEGATIVE, Ur Propoxyphene Screen NEGATIVE, Ur Barbiturates Screen NEGATIVE, Ur Tricyclics Screen NEGATIVE, Ur Phencyclidine Scrn NEGATIVE, Ur Amphetamine Screen NEGATIVE, U Methamphetamines Scrn NEGATIVE, U Benzodiazepines Scrn NEGATIVE, Urine Cocaine Screen NEGATIVE, U Cannabinoids Screen NEGATIVE 08/05/23 20:30: Ammonia 215.0 H* 08/05/23 20:20: Salicylates < 1.5, Acetaminophen < 0.1, Ethyl Alcohol < 10.0 08/05/23 20:20: Sodium 123 L, Potassium 5.7 H, Chloride 96 L, Carbon Dioxide 19 L, Anion Gap 8.0, BUN 35 H, Creatinine 1.2, Estimated GFR (MDRD) 47 L, Glucose 97, Calcium 9.1, Total Bilirubin 1.1 H, AST 41, ALT 32, Alkaline Phosphatase 170 H, Total Protein 6.4, Albumin 3.5, Globulin 2.9, Albumin/Globulin Ratio 1.2, Lipase 104 H 08/05/23 20:20: WBC 6.1, RBC 3.33 L, Hgb 9.8 L, Hct 28.8 L, MCV 86.5, MCH 29.4, MCHC 34.0, RDW 16.6 H, Plt Count 248, MPV 8.2, Neut # (Auto) 4.6, Lymph # (Auto) 0.5 L, [place] # (Auto) 0.7, Eos # (Auto) 0.2, Baso # (Auto) 0.0, Absolute Nucleated RBC 0.00, Nucleated RBC % 0.0 Fish Bones: 08/08/23 05:29 08/08/23 15:15 Home Medications and Allergies Home Medications: Ambulatory Orders Furosemide [Lasix] 40 mg PO BID 08/06/23 Lactulose 30 ml PO TID 08/06/23 Lidocaine Patch 5% [Lidoderm Patch] 1 patch DAILY 08/06/23 Omeprazole 40 mg PO BID 08/06/23 Potassium Chloride [K-Dur] 20 meq PO BID 08/06/23 Spironolactone [Aldactone] 300 mg PO DAILY 08/06/23 traZODone [Desyrel] 50 mg PO HS PRN 08/06/23 Active Medications Hydrocodone Bitart/Acetaminophen (Hydrocod/Acetam 5/325 Mg Tablet) 1 tab PO Q8HR PRN PRN Reason: Pain 5 to 7 Furosemide (Furosemide 20 Mg Tablet) 20 mg PO BID [facility] Last Admin: 08/08/23 09:34 Dose: 20 mg Sodium Chloride (Normal Saline 0.9%) 1,000 mls @ 83.333 mls/hr IV .Q12H [facility] Stop: 08/08/23 21:59 Last Admin: 08/08/23 09:50 Dose: 83.333 mls/hr Lactulose (Lactulose 10 Gm /15 Ml Udc) 30 gm PO TID [facility] Last Admin: 08/08/23 14:01 Dose: 30 gm Lidocaine (Lidocaine Patch 5%) 1 patch TOP DAILY [facility] Last Admin: 08/08/23 09:34 Dose: 1 patch Magnesium Oxide (Magnesium Oxide 400 Mg Tablet) 400 mg PO DAILYWM [facility] Last Admin: 08/08/23 12:07 Dose: 400 mg Ondansetron HCl (Ondansetron 4 Mg/2 Ml Vial) 4 mg IVP Q6HR PRN PRN Reason: Nausea / Vomiting Pantoprazole Sodium (Pantoprazole 40 Mg Tablet) 40 mg PO BIDAC [facility] Last Admin: 08/08/23 17:05 Dose: 40 mg Multivit/Folic Acid/Iron ( Vitamin Tablet) 1 tab PO DAILYWM [facility] Last Admin: 08/08/23 09:33 Dose: 1 tab Propranolol HCl (Propranolol 10 Mg Tablet) 20 mg PO BID [facility] Last Admin: 08/08/23 09:34 Dose: 20 mg Rifaximin (Rifaximin 550 Mg Tablet) 550 mg PO BID [facility] Last Admin: 08/08/23 09:34 Dose: 550 mg Sodium Chloride (Sodium Chloride Flush 0.9% 10 Ml Syringe) 10 ml IVP PRN PRN PRN Reason: NEEDED PER PROVIDER ORDERS Sodium Chloride (Sodium Chloride Flush 0.9% 10 Ml Syringe) 10 ml IVP 0 100,0900,1700 [facility] Last Admin: 08/08/23 17:05 Dose: Not Given Spironolactone (Spironolactone 25 Mg Tablet) 50 mg PO 1200 [facility] Last Admin: 08/08/23 12:07 Dose: 50 mg Thiamine HCl (Thiamine 100 Mg Tablet) 100 mg PO DAILY [facility] Last Admin: 08/08/23 09:34 Dose: 100 mg Trazodone HCl (Trazodone 50 Mg Tablet) 50 mg PO HS PRN PRN Reason: Insomnia Furosemide [Lasix] 40 mg PO BID 08/06/23 Lactulose 30 ml PO TID 08/06/23 Lidocaine Patch 5% [Lidoderm Patch] 1 patch DAILY 08/06/23 Omeprazole 40 mg PO BID 08/06/23 Potassium Chloride [K-Dur] 20 meq PO BID 08/06/23 Spironolactone [Aldactone] 300 mg PO DAILY 08/06/23 traZODone [Desyrel] 50 mg PO HS PRN 08/06/23 Allergies/Adverse Reactions: Allergies Allergy/AdvReac Type Severity Reaction Status Date / Time No Known Drug Allergies Allergy Verified 08/05/23 20:24 Anes History & Medical History - Anesthetic History Anesthesia Complications: reports: No previous complications - Medical History Gastrointestinal: reports: Cirrhosis Smoking Status: Current every day smoker Other Past Medical History: cirrhosis, on transplant list - Surgical History Orthopedic: reports: Spine surgery Exam General: Oriented x3, Cooperative, Moderate distress Dental: WNL Mouth Opening: Greater than 4 Fingerbreadths Neck Mobility: Normal Mallampati classification: II Thyromental Distance: greater than 6 cm Plan Anesthesia Type: General Consent for Procedure(s) Verified and Reviewed: Yes Code Status: Attempt Resuscitation ASA classification: 4-Incapacitating disease Is this case an emergency?: Yes
[2023-08-08] MEDS ORDERED: ePHEDrine 50 MG/ML VIAL IVP PRN (20:33)
[2023-08-08] MEDS ORDERED: fentaNYL 100 MCG/2 ML VIAL IVP PRN (20:33)
[2023-08-08] MEDS ORDERED: HYDROmorphone 0.5 MG/0.5 ML SYRINGE IVP PRN (20:33)
[2023-08-08] MEDS ORDERED: ATROPINE ABBOJECT 1 MG/10 ML SYRINGE IVP PRN (20:33)
[2023-08-08] MEDS ORDERED: ONDANSETRON 4 MG/2 ML VIAL IVP PRN (20:33)
[2023-08-08] MEDS ORDERED: MORPHINE 2 MG/ML CARPUJECT IVP PRN (20:33)
[2023-08-08] MEDS ORDERED: METOCLOPRAMIDE 10 MG/2 ML VIAL IVP PRN (20:33)
[2023-08-08] MEDS ORDERED: NALOXONE 0.4 MG/ML VIAL IVP PRN (20:33)
[2023-08-08] MEDS ORDERED: PROPOFOL 200 MG/20 ML VIAL IVP ONE (20:34)
[2023-08-08] MEDS ORDERED: ROCURONIUM 50 MG/5 ML VIAL ONE ×2 (20:34→21:39)
[2023-08-08] MEDS ORDERED: BUPIVACAINE 0.5%-EPI 1:200000 PF 30 ML VIAL ONE (20:48)
[2023-08-08] MEDS ORDERED: LACTATED RINGERS 1,000 ML IV SCH (21:00)
[2023-08-08] MEDS ORDERED: metroNIDAZOLE 500 MG/100 ML 500 MG/100 ML BAG ONE (21:09)
[2023-08-08] MEDS ORDERED: ePHEDrine 50 MG/ML VIAL IVP ONE (21:39)
[2023-08-08] MEDS ORDERED: MIDAZOLAM 2 MG/2 ML VIAL ONE (21:43)
--- NOTE | 2023-08-08 21:51 | OPERATIVE REPORT ---
Operative Report - General Admit Date: 08/06/23 Procedure Date: 08/08/23 Planned Procedure: ex lap, abdominal washout, possible abdominal closure, possible wound vac placement Pre-Op Diagnosis: dehiscence of abdominal would with evisceration Procedure Performed: exploratory laparotomy with abdominal washout, primary closure of skin Post Op Diagnosis: dehiscence of abdominal wound with eviseration, ventral hernia - Procedure Note Primary Surgeon: Dr. Ebony Perez Anesthesia Provider: Marybeth Otero CRNA Anesthesia Technique: General ET tube, MAC Pathology: none Estimated Blood Loss (mL): 2 Indications: This is a 53-year-old patient with end-stage liver disease who had a chronic wound overlying a ventral hernia repair for which skin was excised approximately 10 days ago. The patient got up to go to the bathroom after having a bowel movement in bed this evening, and her wound dehisced and she experienced evisceration of abdominal contents. I was called emergently by the floor nurses. I evaluated the patient at bedside, and indeed she does have evisceration of abdominal contents. I discussed with the patient that all surgeries in her situation are high risk, but that surgery is needed emergently at this time to repair her dehiscence. We discussed risks, benefits, and alternatives of the surgery including bleeding, infection, damage to surrounding structures, the likely need for further surgeries, the limitations of this facility including not having biologic mesh, and the risk of catastrophic events including . The patient voiced understanding, her questions were answered, and she wished to proceed. A consent was signed by the patient prior to surgery. Both myself and her nursing staff felt the patient was clear, alert, and oriented enough to sign her own consent. Findings: 1. Dehiscence of midline abdominal wound with evisceration 2. Large ventral hernia, not repaired 3. Cirrhosis with ascites Complications: None - Other Other Information/Narrative: The patient was taken to the operating room placed in the supine position. Preoperative antibiotics were given general endotracheal anesthesia was induced and the patient was prepped and draped in the usual sterile fashion. A preop surgical timeout was completed. Next, the patient's eviscerated bowel was carefully inspected and irrigated and placed back within the abdomen. The patient's midline incision had dehisced for approximately 6 cm. Poth, and sutures were removed from this area. The abdomen was then copiously irrigated with 2 L of warm normal saline. Moderate ascites was also noted. Approximately 2-1/2 L of fluid were suctioned from the abdomen. The right side of the patient's skin edge had torn in several locations and is a little skin as possible was removed sharply to get back to clean skin edge. The patient was loaded to have a large ventral hernia. Unfortunately, at our facility we do not have biologic mesh available to bridge the patient's fascial defect. Next, 2-0 nylon sutures were placed approximately every 1 cm and a vertical mattress fashion to reapproximate the skin edges overlying the hernia. Skin adrian were placed to reapproximate the skin edges. A sterile dressing was placed including ABDs as significant leakage of ascitic fluid is expected. I will plan to keep the patient intubated overnight to reduce her chance of recurrent dehiscence, and work with the medicine team in the morning toward transfer to a facility for definitive management of her hernia can be und ertaken.
[2023-08-08 22:45] LABS: ABG BASE EXCESS -10.8 mmol/L (-2.0-3.0); ABG HCO3 15.6 mmol/L (22.0-26.0); ABG OXYGEN SATURATION 97 % (94-98); ABG PCO2 37 mmHg (34-45); ABG PH 7.25 (7.35-7.45); ABG PO2 108 mmHg (80-100); ABG TCO2 16.8 MMOL/L (21.0-29.0); ALLEN TEST POSITIVE
[2023-08-08 22:46] LABS: ABG MODE OF VENTILATION ASSIST/CONTROL; ABG RESPIRATORY RATE 14 b/min
[2023-08-08] MEDS ORDERED: fentaNYL 2,500 MCG in SODIUM CHLORIDE 0.9% 200 ML IV SCH (23:00)
[2023-08-08] MEDS: PROPOFOL 1000 MG/100 ML 1,000 MG/100 ML BOTTLE IV SCH (23:12)
--- NOTE | 2023-08-08 23:47 | XRAY Report ---
PROCEDURE: Post ET Tube 1V CXR INDICATIONS: ET tube placement TECHNIQUE: One view of the chest was acquired. COMPARISON: 08/05/2023 FINDINGS: Surgical changes and devices: Endotracheal tube is in satisfactory position above the zehra. Partia lly imaged cervical spine fusion hardware is seen. Lungs and pleura: Low lung volumes. No new parenchymal opacities, effusion, or pneumothorax. Mediastinum: Mediastinal contours appear normal. Heart size is normal. Bones and chest wall: No suspicious bony lesions. Overlying soft tissues appear unremarkable. IMPRESSION: Expected appearance of endotracheal tube placement. Given low lung volumes, no change to the heart or lungs. Reviewed by: Blanquita Almaraz MD on 08/08/2023 11:46 PM PDT Approved by: Blanquita Almaraz MD on 08/08/2023 11:46 PM PDT Station ID: [id number]
[2023-08-09] MEDS ORDERED: LACTATED RINGERS 1,000 ML IV ONE (02:40)
--- NOTE | 2023-08-09 02:49 | PROVIDER PROGRESS NOTE ---
Subjective - Prog Note Date Prog Note Date: 08/09/23 - Subjective Subjective: I was notified by nursing of patients blood pressure dropping with MAP in low 50, ordered LR bolus 1 L. will reevaluate Objective - Vital Signs/Intake & Output Vital Signs: Vital Signs Temp Pulse Pulse Resp BP Pulse Ox 08/09/23 02:00 72 15 81/53 L 100 08/09/23 01:10 80 08/09/23 01:00 76 15 90/54 L 100 08/09/23 00:00 36.5 C 74 14 86/51 L 98 08/08/23 23:00 82 14 111/69 95 08/08/23 22:50 80 Intake & Output: Intake & Output 08/06/23 08/07/23 08/08/23 08/09/23 23:59 23:59 23:59 23:59 Intake Total 1430 4438 2430 Output Total 155 47 Balance 1430 4438 2275 -47 - Lab Results Fish Bones: 08/08/23 05:29 08/08/23 15:15 Other Labs: Lab Results x24hrs 08/08/23 08/08/23 08/08/23 Range/Units 22:35 15:15 09:40 WBC (4.8-10.8) x10^3/uL RBC (4.20-5.40) 10^6/uL Hgb (12.0-16.0) g/dL Hct (37.0-47.0) % MCV (81.0-99.0) fL MCH (27.0-31.0) pg MCHC (32.0-36.0) g/dL RDW (12.0-15.0) % Plt Count (130-450) 10^3/uL MPV (7.9-10.8) fL Bld Gas Analysis Time 2246 Sample Site LEFT RADIAL ABG pH 7.25 L (7.35-7.45) ABG pCO2 37 (34-45) mmHg ABG pO2 108 H (80-100) mmHg ABG HCO3 15.6 L (22.0-26.0) mmol/L ABG Total CO2 16.8 L (21.0-29.0) MMOL/L ABG O2 Saturation 97 (94-98) % ABG Base Excess -10.8 L (-2.0-3.0) mmol/L Edwin Test POSITIVE Respiration Rate 14 b/min O2 Delivery Device VENTILATOR Vent Mode ASSIST/CONTROL FiO2 40.00 Tidal Volume 400 mL PEEP 5 cmH2O Sodium 120 L* (135-145) mmol/L Potassium (3.5-4.5) mmol/L Chloride (101-111) mmol/L Carbon Dioxide (21-32) mmol/L Anion Gap (6-13) BUN (6-20) mg/dL Creatinine (0.6-1.3) mg/dL Estimated GFR (MDRD) (>89) Glucose (74-104) mg/dL Calcium (8.5-10.3) mg/dL Magnesium (1.7-2.3) mg/dL Total Bilirubin (0.2-1.0) mg/dL AST (10-42) IU/L ALT (10-60) IU/L Alkaline Phosphatase (42-121) IU/L Ammonia 58.7 (18-72) umol/L Total Protein (6.4-8.9) g/dL Albumin (3.2-5.5) g/dL Globulin (2.1-4.2) g/dL Albumin/Globulin Ratio (1.0-2.2) 08/08/23 08/08/23 Range/Units 05:29 05:29 WBC 7.4 (4.8-10.8) x10^3/uL RBC 3.06 L (4.20-5.40) 10^6/uL Hgb 9.1 L (12.0-16.0) g/dL Hct 26.6 L (37.0-47.0) % MCV 86.9 (81.0-99.0) fL MCH 29.7 (27.0-31.0) pg MCHC 34.2 (32.0-36.0) g/dL RDW 16.2 H (12.0-15.0) % Plt Count 197 (130-450) 10^3/uL MPV 8.4 (7.9-10.8) fL Bld Gas Analysis Time Sample Site ABG pH (7.35-7.45) ABG pCO2 (34-45) mmHg ABG pO2 (80-100) mmHg ABG HCO3 (22.0-26.0) mmol/L ABG Total CO2 (21.0-29.0) MMOL/L ABG O2 Saturation (94-98) % ABG Base Excess (-2.0-3.0) mmol/L Edwin Test Respiration Rate b/min O2 Delivery Device Vent Mode FiO2 Tidal Volume mL PEEP cmH2O Sodium 120 L* (135-145) mmol/L Potassium 3.9 (3.5-4.5) mmol/L Chloride 95 L (101-111) mmol/L Carbon Dioxide 16 L (21-32) mmol/L Anion Gap 9.0 (6-13) BUN 26 H (6-20) mg/dL Creatinine 0.9 (0.6-1.3) mg/dL Estimated GFR (MDRD) 65 L (>89) Glucose 103 (74-104) mg/dL Calcium 8.6 (8.5-10.3) mg/dL Magnesium 1.6 L (1.7-2.3) mg/dL Total Bilirubin 0.8 (0.2-1.0) mg/dL AST 37 (10-42) IU/L ALT 27 (10-60) IU/L Alkaline Phosphatase 150 H (42-121) IU/L Ammonia (18-72) umol/L Total Protein 5.9 L (6.4-8.9) g/dL Albumin 3.0 L (3.2-5.5) g/dL Globulin 2.9 (2.1-4.2) g/dL Albumin/Globulin Ratio 1.0 (1.0-2.2) Sepsis Event Note (H) - Evaluation Current Stage of Sepsis: Ruled out
[2023-08-09] MEDS: ALBUMIN 25% 12.5 GM/50 ML VIAL IV SCH ×8 (04:05→09:55)
[2023-08-09 04:45] LABS: CALCIUM, IONIZED 1.16 mmol/L (1.15-1.33); VBG PH 7.274 (7.31-7.41)
[2023-08-09 04:46] LABS: BASOPHILS # (AUTO) 0.1 10^3/uL (0.0-0.1); BASOPHILS % (AUTO) 0.7 %; EOSINOPHILS # (AUTO) 0.1 10^3/uL (0.0-0.7); EOSINOPHILS % (AUTO) 0.8 %; HCT - HEMATOCRIT 33.1 % (37.0-47.0); HGB - HEMOGLOBIN 10.6 g/dL (12.0-16.0); LYMPHOCYTES # (AUTO) 0.3 10^3/uL (1.5-3.5); LYMPHOCYTES % (AUTO) 2.9 %; MEAN CORPUSCULAR HEMOGLOBIN 29.5 pg (27.0-31.0); MEAN CORPUSCULAR VOLUME 92.2 fL (81.0-99.0); MEAN PLATELET VOLUME 8.4 fL (7.9-10.8); MONOCYTES # (AUTO) 0.5 10^3/uL (0.0-1.0); MONOCYTES % (AUTO) 5.3 %; NEUTROPHILS # (AUTO) 8.6 10^3/uL (1.5-6.6); NEUTROPHILS % (AUTO) 89.5 %; PLT - PLATELET COUNT 230 10^3/uL (130-450); RED BLOOD COUNT 3.59 10^6/uL (4.20-5.40); RED CELL DISTRIBUTION WIDTH 16.3 % (12.0-15.0); WHITE BLOOD COUNT 9.7 x10^3/uL (4.8-10.8)
[2023-08-09 04:55] LABS: PARTIAL THROMBOPLASTIN TIME 29.4 secs (24.9-33.3)
[2023-08-09 04:58] LABS: ALBUMIN 2.7 g/dL (3.2-5.5); CALCIUM 8.1 mg/dL (8.5-10.3); MAGNESIUM 1.7 mg/dL (1.7-2.3); POTASSIUM 4.4 mmol/L (3.5-4.5); TOTAL PROTEIN 5.4 g/dL (6.4-8.9)
[2023-08-09 04:59] LABS: INR 1.2 (0.8-1.2); PT - PROTHROMBIN TIME 13.5 secs (9.9-12.6)
[2023-08-09] MEDS: SODIUM CHLORIDE FLUSH 0.9% 10 ML SYRINGE IVP PRN ×2 (05:11→05:57)
[2023-08-09] MEDS ORDERED: MAGNESIUM SULFATE 2 GRAM 2 GM/50 ML BAG IV ONE (05:59)
--- NOTE | 2023-08-09 06:27 | PROVIDER PROGRESS NOTE ---
Subjective - Prog Note Date Prog Note Date: 08/09/23 - Subjective Subjective: pt given 4 doses of albumin ,midodrine and started another albumin infusion. if no improvement may need to be started on pressures. Objective - Vital Signs/Intake & Output Vital Signs: Vital Signs x48h Temp Pulse Pulse Resp BP Pulse Ox 08/09/23 06:00 74 13 76/51 L 100 08/09/23 05:33 73 08/09/23 05:00 73 14 76/53 L 100 08/09/23 04:00 36.7 C 74 15 82/53 L 100 08/09/23 03:30 71 08/09/23 03:00 71 14 79/49 L 100 08/09/23 02:00 72 15 81/53 L 100 08/09/23 01:10 80 08/09/23 01:00 76 15 90/54 L 100 08/09/23 00:00 36.5 C 74 14 86/51 L 98 08/08/23 23:00 82 14 111/69 95 08/08/23 22:50 80 Intake & Output: Intake & Output 08/06/23 08/07/23 08/08/23 08/09/23 23:59 23:59 23:59 23:59 Intake Total 1430 4438 3430 1269.875 Output Total 155 59 Balance 1430 4438 3275 1210.875 - Lab Results Fish Bones: 08/09/23 04:33 08/09/23 04:33 Other Labs: Lab Results x24hrs 08/09/23 08/09/23 08/09/23 Range/Units 04:33 04:33 04:33 WBC (4.8-10.8) x10^3/uL RBC (4.20-5.40) 10^6/uL Hgb (12.0-16.0) g/dL Hct (37.0-47.0) % MCV (81.0-99.0) fL MCH (27.0-31.0) pg MCHC (32.0-36.0) g/dL RDW (12.0-15.0) % Plt Count (130-450) 10^3/uL MPV (7.9-10.8) fL Neut # (Auto) (1.5-6.6) 10^3/uL Lymph # (Auto) (1.5-3.5) 10^3/uL [place] # (Auto) (0.0-1.0) 10^3/uL Eos # (Auto) (0.0-0.7) 10^3/uL Baso # (Auto) (0.0-0.1) 10^3/uL Absolute Nucleated RBC x10^3/uL Nucleated RBC % /100WBC PT 13.5 H (9.9-12.6) secs INR 1.2 (0.8-1.2) APTT 29.4 (24.9-33.3) secs Bld Gas Analysis Time Sample Site ABG pH (7.35-7.45) ABG pCO2 (34-45) mmHg ABG pO2 (80-100) mmHg ABG HCO3 (22.0-26.0) mmol/L ABG Total CO2 (21.0-29.0) MMOL/L ABG O2 Saturation (94-98) % ABG Base Excess (-2.0-3.0) mmol/L Edwin Test VBG pH 7.274 L (7.31-7.41) Ionized Calcium 1.16 (1.15-1.33) mmol/L Respiration Rate b/min O2 Delivery Device Vent Mode FiO2 Tidal Volume mL PEEP cmH2O Sodium (135-145) mmol/L Potassium (3.5-4.5) mmol/L Chloride (101-111) mmol/L Carbon Dioxide (21-32) mmol/L Anion Gap (6-13) BUN (6-20) mg/dL Creatinine (0.6-1.3) mg/dL Estimated GFR (MDRD) (>89) Glucose (74-104) mg/dL Calcium (8.5-10.3) mg/dL Phosphorus 4.6 (2.5-5.0) mg/dL Magnesium (1.7-2.3) mg/dL Iron (50-212) ug/dL TIBC (250-450) ug/dL % Saturation (20-50) % Transferrin (203-362) mg/dL Total Bilirubin (0.2-1.0) mg/dL AST (10-42) IU/L ALT (10-60) IU/L Alkaline Phosphatase (42-121) IU/L Ammonia (18-72) umol/L Total Protein (6.4-8.9) g/dL Albumin (3.2-5.5) g/dL Globulin (2.1-4.2) g/dL Albumin/Globulin Ratio (1.0-2.2) Vitamin B12 (180-914) pg/mL Folate (5.90 - >24.8) ng/mL Nasal Screen MRSA (PCR) (NEGATIVE) 08/09/23 08/09/23 08/09/23 Range/Units 04:33 04:33 04:33 WBC 9.7 (4.8-10.8) x10^3/uL RBC 3.59 L (4.20-5.40) 10^6/uL Hgb 10.6 L (12.0-16.0) g/dL Hct 33.1 L (37.0-47.0) % MCV 92.2 (81.0-99.0) fL MCH 29.5 (27.0-31.0) pg MCHC 32.0 (32.0-36.0) g/dL RDW 16.3 H (12.0-15.0) % Plt Count 230 (130-450) 10^3/uL MPV 8.4 (7.9-10.8) fL Neut # (Auto) 8.6 H (1.5-6.6) 10^3/uL Lymph # (Auto) 0.3 L (1.5-3.5) 10^3/uL [place] # (Auto) 0.5 (0.0-1.0) 10^3/uL Eos # (Auto) 0.1 (0.0-0.7) 10^3/uL Baso # (Auto) 0.1 (0.0-0.1) 10^3/uL Absolute Nucleated RBC 0.00 x10^3/uL Nucleated RBC % 0.0 /100WBC PT (9.9-12.6) secs INR (0.8-1.2) APTT (24.9-33.3) secs Bld Gas Analysis Time Sample Site ABG pH (7.35-7.45) ABG pCO2 (34-45) mmHg ABG pO2 (80-100) mmHg ABG HCO3 (22.0-26.0) mmol/L ABG Total CO2 (21.0-29.0) MMOL/L ABG O2 Saturation (94-98) % ABG Base Excess (-2.0-3.0) mmol/L Edwin Test VBG pH (7.31-7.41) Ionized Calcium (1.15-1.33) mmol/L Respiration Rate b/min O2 Delivery Device Vent Mode FiO2 Tidal Volume mL PEEP cmH2O Sodium 122 L (135-145) mmol/L Potassium 4.4 (3.5-4.5) mmol/L Chloride 99 L (101-111) mmol/L Carbon Dioxide 16 L (21-32) mmol/L Anion Gap 7.0 (6-13) BUN 26 H (6-20) mg/dL Creatinine 1.0 (0.6-1.3) mg/dL Estimated GFR (MDRD) 58 L (>89) Glucose 96 (74-104) mg/dL Calcium 8.1 L (8.5-10.3) mg/dL Phosphorus (2.5-5.0) mg/dL Magnesium 1.7 (1.7-2.3) mg/dL Iron 51 (50-212) ug/dL TIBC 251 (250-450) ug/dL % Saturation 20 (20-50) % Transferrin 179 L (203-362) mg/dL Total Bilirubin 1.0 (0.2-1.0) mg/dL AST 34 (10-42) IU/L ALT 23 (10-60) IU/L Alkaline Phosphatase 141 H (42-121) IU/L Ammonia 69.7 (18-72) umol/L Total Protein 5.4 L (6.4-8.9) g/dL Albumin 2.7 L (3.2-5.5) g/dL Globulin 2.7 (2.1-4.2) g/dL Albumin/Globulin Ratio 1.0 (1.0-2.2) Vitamin B12 1116 H (180-914) pg/mL Folate 21.8 (5.90 - >24.8) ng/mL Nasal Screen MRSA (PCR) (NEGATIVE) 08/08/23 08/08/23 08/08/23 Range/Units 22:35 22:10 15:15 WBC (4.8-10.8) x10^3/uL RBC (4.20-5.40) 10^6/uL Hgb (12.0-16.0) g/dL Hct (37.0-47.0) % MCV (81.0-99.0) fL MCH (27.0-31.0) pg MCHC (32.0-36.0) g/dL RDW (12.0-15.0) % Plt Count (130-450) 10^3/uL MPV (7.9-10.8) fL Neut # (Auto) (1.5-6.6) 10^3/uL Lymph # (Auto) (1.5-3.5) 10^3/uL [place] # (Auto) (0.0-1.0) 10^3/uL Eos # (Auto) (0.0-0.7) 10^3/uL Baso # (Auto) (0.0-0.1) 10^3/uL Absolute Nucleated RBC x10^3/uL Nucleated RBC % /100WBC PT (9.9-12.6) secs INR (0.8-1.2) APTT (24.9-33.3) secs Bld Gas Analysis Time 2246 Sample Site LEFT RADIAL ABG pH 7.25 L (7.35-7.45) ABG pCO2 37 (34-45) mmHg ABG pO2 108 H (80-100) mmHg ABG HCO3 15.6 L (22.0-26.0) mmol/L ABG Total CO2 16.8 L (21.0-29.0) MMOL/L ABG O2 Saturation 97 (94-98) % ABG Base Excess -10.8 L (-2.0-3.0) mmol/L Edwin Test POSITIVE VBG pH (7.31-7.41) Ionized Calcium (1.15-1.33) mmol/L Respiration Rate 14 b/min O2 Delivery Device VENTILATOR Vent Mode ASSIST/CONTROL FiO2 40.00 Tidal Volume 400 mL PEEP 5 cmH2O Sodium 120 L* (135-145) mmol/L Potassium (3.5-4.5) mmol/L Chloride (101-111) mmol/L Carbon Dioxide (21-32) mmol/L Anion Gap (6-13) BUN (6-20) mg/dL Creatinine (0.6-1.3) mg/dL Estimated GFR (MDRD) (>89) Glucose (74-104) mg/dL Calcium (8.5-10.3) mg/dL Phosphorus (2.5-5.0) mg/dL Magnesium (1.7-2.3) mg/dL Iron (50-212) ug/dL TIBC (250-450) ug/dL % Saturation (20-50) % Transferrin (203-362) mg/dL Total Bilirubin (0.2-1.0) mg/dL AST (10-42) IU/L ALT (10-60) IU/L Alkaline Phosphatase (42-121) IU/L Ammonia (18-72) umol/L Total Protein (6.4-8.9) g/dL Albumin (3.2-5.5) g/dL Globulin (2.1-4.2) g/dL Albumin/Globulin Ratio (1.0-2.2) Vitamin B12 (180-914) pg/mL Folate (5.90 - >24.8) ng/mL Nasal Screen MRSA (PCR) NEGATIVE (NEGATIVE) 08/08/23 08/08/23 Range/Units 09:40 05:29 WBC 7.4 (4.8-10.8) x10^3/uL RBC 3.06 L (4.20-5.40) 10^6/uL Hgb 9.1 L (12.0-16.0) g/dL Hct 26.6 L (37.0-47.0) % MCV 86.9 (81.0-99.0) fL MCH 29.7 (27.0-31.0) pg MCHC 34.2 (32.0-36.0) g/dL RDW 16.2 H (12.0-15.0) % Plt Count 197 (130-450) 10^3/uL MPV 8.4 (7.9-10.8) fL Neut # (Auto) (1.5-6.6) 10^3/uL Lymph # (Auto) (1.5-3.5) 10^3/uL [place] # (Auto) (0.0-1.0) 10^3/uL Eos # (Auto) (0.0-0.7) 10^3/uL Baso # (Auto) (0.0-0.1) 10^3/uL Absolute Nucleated RBC x10^3/uL Nucleated RBC % /100WBC PT (9.9-12.6) secs INR (0.8-1.2) APTT (24.9-33.3) secs Bld Gas Analysis Time Sample Site ABG pH (7.35-7.45) ABG pCO2 (34-45) mmHg ABG pO2 (80-100) mmHg ABG HCO3 (22.0-26.0) mmol/L ABG Total CO2 (21.0-29.0) MMOL/L ABG O2 Saturation (94-98) % ABG Base Excess (-2.0-3.0) mmol/L Edwin Test VBG pH (7.31-7.41) Ionized Calcium (1.15-1.33) mmol/L Respiration Rate b/min O2 Delivery Device Vent Mode FiO2 Tidal Volume mL PEEP cmH2O Sodium (135-145) mmol/L Potassium (3.5-4.5) mmol/L Chloride (101-111) mmol/L Carbon Dioxide (21-32) mmol/L Anion Gap (6-13) BUN (6-20) mg/dL Creatinine (0.6-1.3) mg/dL Estimated GFR (MDRD) (>89) Glucose (74-104) mg/dL Calcium (8.5-10.3) mg/dL Phosphorus (2.5-5.0) mg/dL Magnesium (1.7-2.3) mg/dL Iron (50-212) ug/dL TIBC (250-450) ug/dL % Saturation (20-50) % Transferrin (203-362) mg/dL Total Bilirubin (0.2-1.0) mg/dL AST (10-42) IU/L ALT (10-60) IU/L Alkaline Phosphatase (42-121) IU/L Ammonia 58.7 (18-72) umol/L Total Protein (6.4-8.9) g/dL Albumin (3.2-5.5) g/dL Globulin (2.1-4.2) g/dL Albumin/Globulin Ratio (1.0-2.2) Vitamin B12 (180-914) pg/mL Folate (5.90 - >24.8) ng/mL Nasal Screen MRSA (PCR) (NEGATIVE) Sepsis Event Note (H) - Evaluation Current Stage of Sepsis: Ruled out
[2023-08-09] MEDS ORDERED: DOPamine 400 MG/250 ML 400 MG/250 ML BAG IV STA (06:28)
[2023-08-09] MEDS ORDERED: MIDODRINE 2.5 MG TABLET PO SCH (07:00)
--- NOTE | 2023-08-09 07:20 | PROVIDER PROGRESS NOTE ---
Subjective - General Admit Date: 08/06/23 Procedure Date: 08/08/23 Post Op Days: 1 Procedure Performed: ex lap with abdominal washout and primary skin closure (no hernia repair) - Other Other Information/Narrative: Patient remains intubated and sedated. Patient hypotensive overnight, now on dopamine. Minimal UOP per RN. Abdominal dressing remained dry overnight per RN. Objective - Patient Data Reviewed Vital Signs: Yes Vital Signs: Vital Signs x48h Temp Pulse Pulse Resp BP Pulse Ox 08/09/23 07:00 83 13 74/51 L 95 08/09/23 06:00 74 13 76/51 L 100 08/09/23 05:33 73 08/09/23 05:00 73 14 76/53 L 100 08/09/23 04:00 36.7 C 74 15 82/53 L 100 08/09/23 03:30 71 08/09/23 03:00 71 14 79/49 L 100 08/09/23 02:00 72 15 81/53 L 100 08/09/23 01:10 80 08/09/23 01:00 76 15 90/54 L 100 08/09/23 00:00 36.5 C 74 14 86/51 L 98 Weight: Weight 08/07/23 08/08/23 08/09/23 23:59 23:59 23:59 Weight (kg) 54 kg 54.5 kg Intake & Output: Intake and Output Totals x24h 08/07/23 08/08/23 08/09/23 23:59 23:59 23:59 Intake Total 4438 3430 1269.875 Output Total 155 59 Balance 4438 3275 1210.875 - Lab Results Lab Results: 08/09/23 04:33 08/09/23 04:33 Other Lab Results: Lab Results x24hrs 08/09/23 08/09/23 08/09/23 Range/Units 04:33 04:33 04:33 WBC (4.8-10.8) x10^3/uL RBC (4.20-5.40) 10^6/uL Hgb (12.0-16.0) g/dL Hct (37.0-47.0) % MCV (81.0-99.0) fL MCH (27.0-31.0) pg MCHC (32.0-36.0) g/dL RDW (12.0-15.0) % Plt Count (130-450) 10^3/uL MPV (7.9-10.8) fL Neut # (Auto) (1.5-6.6) 10^3/uL Lymph # (Auto) (1.5-3.5) 10^3/uL [place] # (Auto) (0.0-1.0) 10^3/uL Eos # (Auto) (0.0-0.7) 10^3/uL Baso # (Auto) (0.0-0.1) 10^3/uL Absolute Nucleated RBC x10^3/uL Nucleated RBC % /100WBC PT 13.5 H (9.9-12.6) secs INR 1.2 (0.8-1.2) APTT 29.4 (24.9-33.3) secs Bld Gas Analysis Time Sample Site ABG pH (7.35-7.45) ABG pCO2 (34-45) mmHg ABG pO2 (80-100) mmHg ABG HCO3 (22.0-26.0) mmol/L ABG Total CO2 (21.0-29.0) MMOL/L ABG O2 Saturation (94-98) % ABG Base Excess (-2.0-3.0) mmol/L Edwin Test VBG pH 7.274 L (7.31-7.41) Ionized Calcium 1.16 (1.15-1.33) mmol/L Respiration Rate b/min O2 Delivery Device Vent Mode FiO2 Tidal Volume mL PEEP cmH2O Sodium (135-145) mmol/L Potassium (3.5-4.5) mmol/L Chloride (101-111) mmol/L Carbon Dioxide (21-32) mmol/L Anion Gap (6-13) BUN (6-20) mg/dL Creatinine (0.6-1.3) mg/dL Estimated GFR (MDRD) (>89) Glucose (74-104) mg/dL Calcium (8.5-10.3) mg/dL Phosphorus 4.6 (2.5-5.0) mg/dL Magnesium (1.7-2.3) mg/dL Iron (50-212) ug/dL TIBC (250-450) ug/dL % Saturation (20-50) % Transferrin (203-362) mg/dL Total Bilirubin (0.2-1.0) mg/dL AST (10-42) IU/L ALT (10-60) IU/L Alkaline Phosphatase (42-121) IU/L Ammonia (18-72) umol/L Total Protein (6.4-8.9) g/dL Albumin (3.2-5.5) g/dL Globulin (2.1-4.2) g/dL Albumin/Globulin Ratio (1.0-2.2) Vitamin B12 (180-914) pg/mL Folate (5.90 - >24.8) ng/mL Nasal Screen MRSA (PCR) (NEGATIVE) 08/09/23 08/09/23 08/09/23 Range/Units 04:33 04:33 04:33 WBC 9.7 (4.8-10.8) x10^3/uL RBC 3.59 L (4.20-5.40) 10^6/uL Hgb 10.6 L (12.0-16.0) g/dL Hct 33.1 L (37.0-47.0) % MCV 92.2 (81.0-99.0) fL MCH 29.5 (27.0-31.0) pg MCHC 32.0 (32.0-36.0) g/dL RDW 16.3 H (12.0-15.0) % Plt Count 230 (130-450) 10^3/uL MPV 8.4 (7.9-10.8) fL Neut # (Auto) 8.6 H (1.5-6.6) 10^3/uL Lymph # (Auto) 0.3 L (1.5-3.5) 10^3/uL [place] # (Auto) 0.5 (0.0-1.0) 10^3/uL Eos # (Auto) 0.1 (0.0-0.7) 10^3/uL Baso # (Auto) 0.1 (0.0-0.1) 10^3/uL Absolute Nucleated RBC 0.00 x10^3/uL Nucleated RBC % 0.0 /100WBC PT (9.9-12.6) secs INR (0.8-1.2) APTT (24.9-33.3) secs Bld Gas Analysis Time Sample Site ABG pH (7.35-7.45) ABG pCO2 (34-45) mmHg ABG pO2 (80-100) mmHg ABG HCO3 (22.0-26.0) mmol/L ABG Total CO2 (21.0-29.0) MMOL/L ABG O2 Saturation (94-98) % ABG Base Excess (-2.0-3.0) mmol/L Edwin Test VBG pH (7.31-7.41) Ionized Calcium (1.15-1.33) mmol/L Respiration Rate b/min O2 Delivery Device Vent Mode FiO2 Tidal Volume mL PEEP cmH2O Sodium 122 L (135-145) mmol/L Potassium 4.4 (3.5-4.5) mmol/L Chloride 99 L (101-111) mmol/L Carbon Dioxide 16 L (21-32) mmol/L Anion Gap 7.0 (6-13) BUN 26 H (6-20) mg/dL Creatinine 1.0 (0.6-1.3) mg/dL Estimated GFR (MDRD) 58 L (>89) Glucose 96 (74-104) mg/dL Calcium 8.1 L (8.5-10.3) mg/dL Phosphorus (2.5-5.0) mg/dL Magnesium 1.7 (1.7-2.3) mg/dL Iron 51 (50-212) ug/dL TIBC 251 (250-450) ug/dL % Saturation 20 (20-50) % Transferrin 179 L (203-362) mg/dL Total Bilirubin 1.0 (0.2-1.0) mg/dL AST 34 (10-42) IU/L ALT 23 (10-60) IU/L Alkaline Phosphatase 141 H (42-121) IU/L Ammonia 69.7 (18-72) umol/L Total Protein 5.4 L (6.4-8.9) g/dL Albumin 2.7 L (3.2-5.5) g/dL Globulin 2.7 (2.1-4.2) g/dL Albumin/Globulin Ratio 1.0 (1.0-2.2) Vitamin B12 1116 H (180-914) pg/mL Folate 21.8 (5.90 - >24.8) ng/mL Nasal Screen MRSA (PCR) (NEGATIVE) 08/08/23 08/08/23 08/08/23 Range/Units 22:35 22:10 15:15 WBC (4.8-10.8) x10^3/uL RBC (4.20-5.40) 10^6/uL Hgb (12.0-16.0) g/dL Hct (37.0-47.0) % MCV (81.0-99.0) fL MCH (27.0-31.0) pg MCHC (32.0-36.0) g/dL RDW (12.0-15.0) % Plt Count (130-450) 10^3/uL MPV (7.9-10.8) fL Neut # (Auto) (1.5-6.6) 10^3/uL Lymph # (Auto) (1.5-3.5) 10^3/uL [place] # (Auto) (0.0-1.0) 10^3/uL Eos # (Auto) (0.0-0.7) 10^3/uL Baso # (Auto) (0.0-0.1) 10^3/uL Absolute Nucleated RBC x10^3/uL Nucleated RBC % /100WBC PT (9.9-12.6) secs INR (0.8-1.2) APTT (24.9-33.3) secs Bld Gas Analysis Time 2246 Sample Site LEFT RADIAL ABG pH 7.25 L (7.35-7.45) ABG pCO2 37 (34-45) mmHg ABG pO2 108 H (80-100) mmHg ABG HCO3 15.6 L (22.0-26.0) mmol/L ABG Total CO2 16.8 L (21.0-29.0) MMOL/L ABG O2 Saturation 97 (94-98) % ABG Base Excess -10.8 L (-2.0-3.0) mmol/L Edwin Test POSITIVE VBG pH (7.31-7.41) Ionized Calcium (1.15-1.33) mmol/L Respiration Rate 14 b/min O2 Delivery Device VENTILATOR Vent Mode ASSIST/CONTROL FiO2 40.00 Tidal Volume 400 mL PEEP 5 cmH2O Sodium 120 L* (135-145) mmol/L Potassium (3.5-4.5) mmol/L Chloride (101-111) mmol/L Carbon Dioxide (21-32) mmol/L Anion Gap (6-13) BUN (6-20) mg/dL Creatinine (0.6-1.3) mg/dL Estimated GFR (MDRD) (>89) Glucose (74-104) mg/dL Calcium (8.5-10.3) mg/dL Phosphorus (2.5-5.0) mg/dL Magnesium (1.7-2.3) mg/dL Iron (50-212) ug/dL TIBC (250-450) ug/dL % Saturation (20-50) % Transferrin (203-362) mg/dL Total Bilirubin (0.2-1.0) mg/dL AST (10-42) IU/L ALT (10-60) IU/L Alkaline Phosphatase (42-121) IU/L Ammonia (18-72) umol/L Total Protein (6.4-8.9) g/dL Albumin (3.2-5.5) g/dL Globulin (2.1-4.2) g/dL Albumin/Globulin Ratio (1.0-2.2) Vitamin B12 (180-914) pg/mL Folate (5.90 - >24.8) ng/mL Nasal Screen MRSA (PCR) NEGATIVE (NEGATIVE) 08/08/23 Range/Units 09:40 WBC (4.8-10.8) x10^3/uL RBC (4.20-5.40) 10^6/uL Hgb (12.0-16.0) g/dL Hct (37.0-47.0) % MCV (81.0-99.0) fL MCH (27.0-31.0) pg MCHC (32.0-36.0) g/dL RDW (12.0-15.0) % Plt Count (130-450) 10^3/uL MPV (7.9-10.8) fL Neut # (Auto) (1.5-6.6) 10^3/uL Lymph # (Auto) (1.5-3.5) 10^3/uL [place] # (Auto) (0.0-1.0) 10^3/uL Eos # (Auto) (0.0-0.7) 10^3/uL Baso # (Auto) (0.0-0.1) 10^3/uL Absolute Nucleated RBC x10^3/uL Nucleated RBC % /100WBC PT (9.9-12.6) secs INR (0.8-1.2) APTT (24.9-33.3) secs Bld Gas Analysis Time Sample Site ABG pH (7.35-7.45) ABG pCO2 (34-45) mmHg ABG pO2 (80-100) mmHg ABG HCO3 (22.0-26.0) mmol/L ABG Total CO2 (21.0-29.0) MMOL/L ABG O2 Saturation (94-98) % ABG Base Excess (-2.0-3.0) mmol/L Edwin Test VBG pH (7.31-7.41) Ionized Calcium (1.15-1.33) mmol/L Respiration Rate b/min O2 Delivery Device Vent Mode FiO2 Tidal Volume mL PEEP cmH2O Sodium (135-145) mmol/L Potassium (3.5-4.5) mmol/L Chloride (101-111) mmol/L Carbon Dioxide (21-32) mmol/L Anion Gap (6-13) BUN (6-20) mg/dL Creatinine (0.6-1.3) mg/dL Estimated GFR (MDRD) (>89) Glucose (74-104) mg/dL Calcium (8.5-10.3) mg/dL Phosphorus (2.5-5.0) mg/dL Magnesium (1.7-2.3) mg/dL Iron (50-212) ug/dL TIBC (250-450) ug/dL % Saturation (20-50) % Transferrin (203-362) mg/dL Total Bilirubin (0.2-1.0) mg/dL AST (10-42) IU/L ALT (10-60) IU/L Alkaline Phosphatase (42-121) IU/L Ammonia 58.7 (18-72) umol/L Total Protein (6.4-8.9) g/dL Albumin (3.2-5.5) g/dL Globulin (2.1-4.2) g/dL Albumin/Globulin Ratio (1.0-2.2) Vitamin B12 (180-914) pg/mL Folate (5.90 - >24.8) ng/mL Nasal Screen MRSA (PCR) (NEGATIVE) - Current Medications Current Medications: Current Medications Generic Name Dose Route Start Last Admin Trade Name Freq PRN Reason Stop Dose Admin Furosemide 20 mg 08/07/23 21:00 08/08/23 22:50 Furosemide 20 Mg Tablet PO Not Given BID PERLA Propofol 1,000 mg in 100 mls @ 3.24 mls/hr 08/08/23 23:00 08/09/23 05:32 Diprivan IV 10 mcg/kg/min .[id number] PERLA 3.24 mls/hr Titration Protocol 10 MCG/KG/MIN Fentanyl 2,500 mcg/ Sodium 250 mls @ 5.4 mls/hr 08/08/23 23:00 08/09/23 05:32 Chloride IV 2.19 mcg/kg/hr .[id number] PERLA 11.826 mls/hr Titration Protocol 1 MCG/KG/HR Dopamine HCl/Dextrose 400 mg in 250 mls @ 4.088 mls/hr 08/09/23 06:28 08/09/23 06:51 Dopamine IV 08/11/23 19:37 2 mcg/kg/min ONCE STA 4.088 mls/hr Administration Protocol 2 MCG/KG/MIN Lactulose 30 gm 08/06/23 06:00 08/08/23 22:51 Lactulose 10 Gm /15 Ml Udc PO Not Given TID PERLA Lidocaine 1 patch 08/06/23 14:21 08/08/23 09:34 Lidocaine Patch 5% TOP 1 patch DAILY PERLA Administration Magnesium Oxide 400 mg 08/08/23 12:00 08/08/23 12:07 Magnesium Oxide 400 Mg Tablet PO 400 mg DAILYWM PERLA Administration Ondansetron HCl 4 mg 08/06/23 00:04 08/08/23 20:39 Ondansetron 4 Mg/2 Ml Vial IVP 4 mg Q6HR PRN Administration Nausea / Vomiting Pantoprazole Sodium 40 mg 08/06/23 16:00 08/08/23 17:05 Pantoprazole 40 Mg Tablet PO 40 mg BIDAC PERLA Administration Multivit/Folic Acid/Iron 1 tab 08/07/23 12:00 08/08/23 09:33 Vitamin Tablet PO 1 tab DAILYWM PERLA Administration Propranolol HCl 20 mg 08/07/23 10:00 08/08/23 22:50 Propranolol 10 Mg Tablet PO Not Given BID PERLA Rifaximin 550 mg 08/06/23 09:00 08/08/23 22:51 Rifaximin 550 Mg Tablet PO Not Given BID PERLA Sodium Chloride 10 ml 08/06/23 00:04 08/09/23 05:57 Sodium Chloride Flush 0.9% 10 Ml Syringe IVP 10 ml PRN PRN Administration NEEDED PER PROVIDER ORDERS Sodium Chloride 10 ml 08/06/23 01:00 08/08/23 23:23 Sodium Chloride Flush 0.9% 10 Ml Syringe IVP 10 ml 0100,0900,1700 PERLA Administration Spironolactone 50 mg 08/07/23 12:00 08/08/23 12:07 Spironolactone 25 Mg Tablet PO 50 mg 1200 PERLA Administration Thiamine HCl 100 mg 08/07/23 12:00 08/08/23 09:34 Thiamine 100 Mg Tablet PO 100 mg DAILY PERLA Administration - Physical Exam Wound/Incisions: positive: Dressing dry and intact, No drainage General Appearance: positive: Other (intubated and sedated, opens eyes to voice, follows commands.) ENT: positive: Other (intubated) Neck: positive: Trachea midline Respiratory: positive: Other (on vent) Cardiovascular: positive: Regular rate & rhythm, Other (on dopamine for pressure support) Abdomen: positive: No distention, Other (dressing c/d/i). negative: Guarding, Rebound Skin: positive: No rash Extremities: positive: Nml appearance Impression/Plan - Problem List Problem List: 53 y/o F with end stage liver disease, s/p skin excision of abdominal wall approximately 11 days ago at an outside hospital due to chronic wound. Patient had dehiscence with evisceration last night, now POD#1 from ex lap with washout and primary skin closure. - I did obtain some records from [facility] regarding patient's recent stay, but not the operative report. However, intra op it appears she had a skin excision due to a chronic abdominal wound but no attempt at ventral hernia repair of large (8cm) fascial defect - bowel viable, no biologic mesh available at this facility to attempt VHR. s/p ex lap, washout and skin closure - continue post op abx due to high risk for peritonitis after evisceration and chronic liver failure, ascites - patient states she is on transplant list at - Overnight, patient's status has worsened, and she is now requiring pressors. Her prognosis is poor with her multiple medical problems, chief among them is ESLD with suspected developing hepatorenal syndrome, and an abdominal wound which is high risk for recurrent dehiscence. Given the medical and surgical complexity of this patient, I highly recommend transfer to a higher level of care and have discussed this patient in detail with Dr. Jimenes of the medical team.
[2023-08-09] MEDS: LACTULOSE 10 GM /15 ML UDC PO SCH ×2 (07:32→13:07)
[2023-08-09] MEDS: PANTOPRAZOLE 40 MG TABLET PO SCH (07:42)
--- NOTE | 2023-08-09 07:52 | PROVIDER PROGRESS NOTE ---
Subjective - Prog Note Date Prog Note Date: 08/09/23 - Subjective Subjective: A 53 years old female with history of alcoholic cirrhosis with ascites was Admitted for hepatic encephalopathy. Objective - Vital Signs/Intake & Output Vital Signs: Vital Signs Temp Pulse Pulse Resp BP Pulse Ox 08/09/23 07:00 83 13 74/51 L 95 08/09/23 06:00 74 13 76/51 L 100 08/09/23 05:33 73 08/09/23 05:00 73 14 76/53 L 100 08/09/23 04:00 36.7 C 74 15 82/53 L 100 Intake & Output: Intake & Output 08/06/23 08/07/23 08/08/23 08/09/23 23:59 23:59 23:59 23:59 Intake Total 1430 4438 3430 1298.949 Output Total 155 59 Balance 1430 4438 3275 1239.949 - Lab Results Fish Bones: 08/09/23 04:33 08/09/23 04:33 Other Labs: Lab Results x24hrs 08/09/23 08/09/23 08/09/23 Range/Units 04:33 04:33 04:33 WBC (4.8-10.8) x10^3/uL RBC (4.20-5.40) 10^6/uL Hgb (12.0-16.0) g/dL Hct (37.0-47.0) % MCV (81.0-99.0) fL MCH (27.0-31.0) pg MCHC (32.0-36.0) g/dL RDW (12.0-15.0) % Plt Count (130-450) 10^3/uL MPV (7.9-10.8) fL Neut # (Auto) (1.5-6.6) 10^3/uL Lymph # (Auto) (1.5-3.5) 10^3/uL Banner # (Auto) (0.0-1.0) 10^3/uL Eos # (Auto) (0.0-0.7) 10^3/uL Baso # (Auto) (0.0-0.1) 10^3/uL Absolute Nucleated RBC x10^3/uL Nucleated RBC % /100WBC PT 13.5 H (9.9-12.6) secs INR 1.2 (0.8-1.2) APTT 29.4 (24.9-33.3) secs Bld Gas Analysis Time Sample Site ABG pH (7.35-7.45) ABG pCO2 (34-45) mmHg ABG pO2 (80-100) mmHg ABG HCO3 (22.0-26.0) mmol/L ABG Total CO2 (21.0-29.0) MMOL/L ABG O2 Saturation (94-98) % ABG Base Excess (-2.0-3.0) mmol/L Edwin Test VBG pH 7.274 L (7.31-7.41) Ionized Calcium 1.16 (1.15-1.33) mmol/L Respiration Rate b/min O2 Delivery Device Vent Mode FiO2 Tidal Volume mL PEEP cmH2O Sodium (135-145) mmol/L Potassium (3.5-4.5) mmol/L Chloride (101-111) mmol/L Carbon Dioxide (21-32) mmol/L Anion Gap (6-13) BUN (6-20) mg/dL Creatinine (0.6-1.3) mg/dL Estimated GFR (MDRD) (>89) Glucose (74-104) mg/dL Calcium (8.5-10.3) mg/dL Phosphorus 4.6 (2.5-5.0) mg/dL Magnesium (1.7-2.3) mg/dL Iron (50-212) ug/dL TIBC (250-450) ug/dL % Saturation (20-50) % Transferrin (203-362) mg/dL Total Bilirubin (0.2-1.0) mg/dL AST (10-42) IU/L ALT (10-60) IU/L Alkaline Phosphatase (42-121) IU/L Ammonia (18-72) umol/L Total Protein (6.4-8.9) g/dL Albumin (3.2-5.5) g/dL Globulin (2.1-4.2) g/dL Albumin/Globulin Ratio (1.0-2.2) Vitamin B12 (180-914) pg/mL Folate (5.90 - >24.8) ng/mL Nasal Screen MRSA (PCR) (NEGATIVE) 08/09/23 08/09/2323 Range/Units 04:33 04:33 04:33 WBC 9.7 (4.8-10.8) x10^3/uL RBC 3.59 L (4.20-5.40) 10^6/uL Hgb 10.6 L (12.0-16.0) g/dL Hct 33.1 L (37.0-47.0) % MCV 92.2 (81.0-99.0) fL MCH 29.5 (27.0-31.0) pg MCHC 32.0 (32.0-36.0) g/dL RDW 16.3 H (12.0-15.0) % Plt Count 230 (130-450) 10^3/uL MPV 8.4 (7.9-10.8) fL Neut # (Auto) 8.6 H (1.5-6.6) 10^3/uL Lymph # (Auto) 0.3 L (1.5-3.5) 10^3/uL Banner # (Auto) 0.5 (0.0-1.0) 10^3/uL Eos # (Auto) 0.1 (0.0-0.7) 10^3/uL Baso # (Auto) 0.1 (0.0-0.1) 10^3/uL Absolute Nucleated RBC 0.00 x10^3/uL Nucleated RBC % 0.0 /100WBC PT (9.9-12.6) secs INR (0.8-1.2) APTT (24.9-33.3) secs Bld Gas Analysis Time Sample Site ABG pH (7.35-7.45) ABG pCO2 (34-45) mmHg ABG pO2 (80-100) mmHg ABG HCO3 (22.0-26.0) mmol/L ABG Total CO2 (21.0-29.0) MMOL/L ABG O2 Saturation (94-98) % ABG Base Excess (-2.0-3.0) mmol/L Edwin Test VBG pH (7.31-7.41) Ionized Calcium (1.15-1.33) mmol/L Respiration Rate b/min O2 Delivery Device Vent Mode FiO2 Tidal Volume mL PEEP cmH2O Sodium 122 L (135-145) mmol/L Potassium 4.4 (3.5-4.5) mmol/L Chloride 99 L (101-111) mmol/L Carbon Dioxide 16 L (21-32) mmol/L Anion Gap 7.0 (6-13) BUN 26 H (6-20) mg/dL Creatinine 1.0 (0.6-1.3) mg/dL Estimated GFR (MDRD) 58 L (>89) Glucose 96 (74-104) mg/dL Calcium 8.1 L (8.5-10.3) mg/dL Phosphorus (2.5-5.0) mg/dL Magnesium 1.7 (1.7-2.3) mg/dL Iron 51 (50-212) ug/dL TIBC 251 (250-450) ug/dL % Saturation 20 (20-50) % Transferrin 179 L (203-362) mg/dL Total Bilirubin 1.0 (0.2-1.0) mg/dL AST 34 (10-42) IU/L ALT 23 (10-60) IU/L Alkaline Phosphatase 141 H (42-121) IU/L Ammonia 69.7 (18-72) umol/L Total Protein 5.4 L (6.4-8.9) g/dL Albumin 2.7 L (3.2-5.5) g/dL Globulin 2.7 (2.1-4.2) g/dL Albumin/Globulin Ratio 1.0 (1.0-2.2) Vitamin B12 1116 H (180-914) pg/mL Folate 21.8 (5.90 - >24.8) ng/mL Nasal Screen MRSA (PCR) (NEGATIVE) 08/08/23 08/08/23 08/08/23 Range/Units 22:35 22:10 15:15 WBC (4.8-10.8) x10^3/uL RBC (4.20-5.40) 10^6/uL Hgb (12.0-16.0) g/dL Hct (37.0-47.0) % MCV (81.0-99.0) fL MCH (27.0-31.0) pg MCHC (32.0-36.0) g/dL RDW (12.0-15.0) % Plt Count (130-450) 10^3/uL MPV (7.9-10.8) fL Neut # (Auto) (1.5-6.6) 10^3/uL Lymph # (Auto) (1.5-3.5) 10^3/uL Banner # (Auto) (0.0-1.0) 10^3/uL Eos # (Auto) (0.0-0.7) 10^3/uL Baso # (Auto) (0.0-0.1) 10^3/uL Absolute Nucleated RBC x10^3/uL Nucleated RBC % /100WBC PT (9.9-12.6) secs INR (0.8-1.2) APTT (24.9-33.3) secs Bld Gas Analysis Time 2246 Sample Site LEFT RADIAL ABG pH 7.25 L (7.35-7.45) ABG pCO2 37 (34-45) mmHg ABG pO2 108 H (80-100) mmHg ABG HCO3 15.6 L (22.0-26.0) mmol/L ABG Total CO2 16.8 L (21.0-29.0) MMOL/L ABG O2 Saturation 97 (94-98) % ABG Base Excess -10.8 L (-2.0-3.0) mmol/L Edwin Test POSITIVE VBG pH (7.31-7.41) Ionized Calcium (1.15-1.33) mmol/L Respiration Rate 14 b/min O2 Delivery Device VENTILATOR Vent Mode ASSIST/CONTROL FiO2 40.00 Tidal Volume 400 mL PEEP 5 cmH2O Sodium 120 L* (135-145) mmol/L Potassium (3.5-4.5) mmol/L Chloride (101-111) mmol/L Carbon Dioxide (21-32) mmol/L Anion Gap (6-13) BUN (6-20) mg/dL Creatinine (0.6-1.3) mg/dL Estimated GFR (MDRD) (>89) Glucose (74-104) mg/dL Calcium (8.5-10.3) mg/dL Phosphorus (2.5-5.0) mg/dL Magnesium (1.7-2.3) mg/dL Iron (50-212) ug/dL TIBC (250-450) ug/dL % Saturation (20-50) % Transferrin (203-362) mg/dL Total Bilirubin (0.2-1.0) mg/dL AST (10-42) IU/L ALT (10-60) IU/L Alkaline Phosphatase (42-121) IU/L Ammonia (18-72) umol/L Total Protein (6.4-8.9) g/dL Albumin (3.2-5.5) g/dL Globulin (2.1-4.2) g/dL Albumin/Globulin Ratio (1.0-2.2) Vitamin B12 (180-914) pg/mL Folate (5.90 - >24.8) ng/mL Nasal Screen MRSA (PCR) NEGATIVE (NEGATIVE) 08/08/23 Range/Units 09:40 WBC (4.8-10.8) x10^3/uL RBC (4.20-5.40) 10^6/uL Hgb (12.0-16.0) g/dL Hct (37.0-47.0) % MCV (81.0-99.0) fL MCH (27.0-31.0) pg MCHC (32.0-36.0) g/dL RDW (12.0-15.0) % Plt Count (130-450) 10^3/uL MPV (7.9-10.8) fL Neut # (Auto) (1.5-6.6) 10^3/uL Lymph # (Auto) (1.5-3.5) 10^3/uL Banner # (Auto) (0.0-1.0) 10^3/uL Eos # (Auto) (0.0-0.7) 10^3/uL Baso # (Auto) (0.0-0.1) 10^3/uL Absolute Nucleated RBC x10^3/uL Nucleated RBC % /100WBC PT (9.9-12.6) secs INR (0.8-1.2) APTT (24.9-33.3) secs Bld Gas Analysis Time Sample Site ABG pH (7.35-7.45) ABG pCO2 (34-45) mmHg ABG pO2 (80-100) mmHg ABG HCO3 (22.0-26.0) mmol/L ABG Total CO2 (21.0-29.0) MMOL/L ABG O2 Saturation (94-98) % ABG Base Excess (-2.0-3.0) mmol/L Edwin Test VBG pH (7.31-7.41) Ionized Calcium (1.15-1.33) mmol/L Respiration Rate b/min O2 Delivery Device Vent Mode FiO2 Tidal Volume mL PEEP cmH2O Sodium (135-145) mmol/L Potassium (3.5-4.5) mmol/L Chloride (101-111) mmol/L Carbon Dioxide (21-32) mmol/L Anion Gap (6-13) BUN (6-20) mg/dL Creatinine (0.6-1.3) mg/dL Estimated GFR (MDRD) (>89) Glucose (74-104) mg/dL Calcium (8.5-10.3) mg/dL Phosphorus (2.5-5.0) mg/dL Magnesium (1.7-2.3) mg/dL Iron (50-212) ug/dL TIBC (250-450) ug/dL % Saturation (20-50) % Transferrin (203-362) mg/dL Total Bilirubin (0.2-1.0) mg/dL AST (10-42) IU/L ALT (10-60) IU/L Alkaline Phosphatase (42-121) IU/L Ammonia 58.7 (18-72) umol/L Total Protein (6.4-8.9) g/dL Albumin (3.2-5.5) g/dL Globulin (2.1-4.2) g/dL Albumin/Globulin Ratio (1.0-2.2) Vitamin B12 (180-914) pg/mL Folate (5.90 - >24.8) ng/mL Nasal Screen MRSA (PCR) (NEGATIVE) Sepsis Event Note (H) - Evaluation Current Stage of Sepsis: Ruled out Assessment/Plan - Problem List (1) Abdominal wound dehiscence Impression: Surgeon Dr. Perez performed emergent wound closure last night, concerns of her Guarded prognosis She needs higher level care Transfer to [facility] Consulted with [facility] Surgeon Dr. Deisy Barker, ICU Dr. Gene Erickson, patient is accepted for transfer
[2023-08-09] MEDS ORDERED: ceFAZolin (2G) 2 GM in SODIUM CHLORIDE 0.9% MINIBAG 100 ML IV SCH (08:00)
[2023-08-09] MEDS ORDERED: metroNIDAZOLE 500 MG/100 ML 500 MG/100 ML BAG IV SCH (08:00)
[2023-08-09] MEDS: SODIUM CHLORIDE FLUSH 0.9% 10 ML SYRINGE IVP SCH (08:31)
[2023-08-09] MEDS ORDERED: PANTOPRAZOLE 40 MG VIAL IV SCH (09:00)
--- NOTE | 2023-08-09 09:38 | XRAY Report ---
PROCEDURE: Chest for Line Placement INDICATIONS: NG tube TECHNIQUE: One view of the chest was acquired. COMPARISON: None. FINDINGS: Surgical changes and devices: An NG tube is present and is projected over the expected gastric fundu s. Endotracheal tube is present and is approximately 2.3 cm above the zehra. Lungs and pleura: Lung volumes are low. No pleural effusions or pneumothorax. Lungs are clear. Mediastinum: Mediastinal contours appear normal. Heart size is normal. Bones and chest wall: No suspicious bony lesions. Overlying soft tissues appear unremarkable. IMPRESSION: Tubes and lines as above. Low lung volumes. Reviewed by: Massiel Lerner MD on 08/09/2023 9:37 AM PDT Approved by: Massiel Lerner MD on 08/09/2023 9:37 AM PDT Station ID: [id number]
[2023-08-09] MEDS: LIDOCAINE PATCH 5% TOP SCH (09:48)
[2023-08-09] MEDS: PROPRANOLOL 10 MG TABLET PO SCH (11:32)
[2023-08-09] MEDS: rifAXIMin 550 MG TABLET PO SCH (11:33)
[2023-08-09] MEDS: SPIRONOLACTONE 25 MG TABLET PO SCH (11:33)
[2023-08-09] MEDS: THIAMINE 100 MG TABLET PO SCH (11:33)
--- NOTE | 2023-08-09 13:09 | XRAY Report ---
PROCEDURE: Abdomen 1 View X-Ray INDICATIONS: posop eval TECHNIQUE: 1 view of the abdomen were acquired. COMPARISON: None. FINDINGS: Surgical changes and devices: Nasogastric tube in stomach. Midline skin adrian noted overlying the pelvis Bowel: No pneumoperitoneum. The bowel gas pattern is normal. Soft tissues: No masses; visualized solid organ contours appear normal in size. No suspicious abdom inal calcifications. Bones: No suspicious bony abnormalities. IMPRESSION: Nasogastric tube in stomach. Nonobstructive bowel gas pattern. Reviewed by: Talha Niño MD on 08/09/2023 12:07 PM [facility] Approved by: Talha Niño MD on 08/09/2023 12:07 PM [facility] Station ID: [id number]
--- NOTE | 2023-08-09 14:54 | Discharge Plan ---
Discharge Plan Problem Reviewed?: Yes Disposition: 02 Transfer Acute Care Hosp Condition: Critical Activity Restrictions: intubated on ventilator Weight Bearing: Intubated Plan of Treatment: Transfer to higher level care No Smoking: If you smoke, Please STOP! Call for help.
--- NOTE | 2023-08-09 14:58 | DISCHARGE SUMMARY ---
"Discharge Summary Admit Date: 08/06/23 Discharge Date: 08/09/23 Discharging Provider: Ruel Jimenes Code Status: Attempt Resuscitation Condition at Discharge: Critical Discharge Disposition: 02 Transfer Acute Care Hosp Discharge Facility Name: [facility] - DIAGNOSES Admission Diagnoses: Hepatic encephalopathy Altered mental status Discharge Diagnoses with Status of Each Condition: Dehiscence abdominal wound with evisceration, s/p emergent closure on 08/08/2023 Remain intubated post op, due to Hemodynamic instability Shock, on Dopamin ESLD, Complicated with ascites, encephalopathy hepatorenal syndrome, severe hyponatremia - HPI History of Present Illness: A 53 years old female with history of alcoholic cirrhosis with ascites brought in by EMS from home for altered mental status. Admitted on 08/06/2023. Per patient mom that patient is fairly independent and private, does not allow her family to know most things about her medical care. Patient is 8 days postoperatively from abdominal hernia repair, however mother states that the incision is constantly draining clear fluid. She was set to have paracentesis done earlier in the day however there were no fluid in her abdomen was drained. Usually patient have paracentesis twice a week, each time remove 10 L. Mother states that patient became altered, she has not compliant with her lactulose use. Patient was evaluated by telemetry hospitalist at night, she was noted that she was somnolent and unable to answer questions at time of admission - CONSULTS | PROCEDURES Consultations: Surgeon Dr. Perez Procedures: Dehiscence of abdominal wound with evisceration Emergent wound closure, continue using abdominal binder - HOSPITAL COURSE Hospital Course: Patient was admitted on 08/06/2023 for altered mental status, considered to be hepatic encephalopathy secondary to noncompliant with lactulose use. At presentation her ammonia level is 215, she was very confused. With lactulose treatment her ammonia level improved to 100 then 58. Patient is conversational oriented, she reports she has no memory of the prior 3 days. Patient would like to go home, however with the abdominal wall hernia after the recent surgery, patient was not cleared to go home. With her parents help, eventually patient decided not to leave AMA and staied for further observation. Per record from [facility], Patient had open ventral hernia repair 07/27/2023 by Fermin Myers. Patietn had normal postop recorvery. Was discharged to home. At time of admission patient noted large portion of her anterior abdominal wall is soft and reducible. She has vertical midline surgical scar, there is leakage of serous fluid from the scar. General surgeon Dr. Kowalski saw the patient and indicated that this is ascites fluid leaking through the scar. He advised dressings and abdominal binder. 08/08/2023 in the evening, patient has wound dehiscence. Emergent wound closure performed by surgeon Dr. Perez. Post op, patietn was hypotensive, needs Dopamin to support Bp of MAP>60. Patient is remained on ventilator support. Patient was started on cefazolin and flagyl post op - ALLERGIES Allergies/Adverse Reactions: Allergies Allergy/AdvReac Type Severity Reaction Status Date / Time No Known Drug Allergies Allergy Verified 08/05/23 20:24 - MEDICATIONS Home Medications: Ambulatory Orders Medication Instructions Recorded Confirmed Furosemide [Lasix] 40 mg PO BID 08/06/23 08/06/23 Lactulose 30 ml PO TID 08/06/23 08/06/23 Lidocaine Patch 5% [Lidoderm Patch] 1 patch DAILY 08/06/23 08/06/23 Omeprazole 40 mg PO BID 08/06/23 08/06/23 Potassium Chloride [K-Dur] 20 meq PO BID 08/06/23 08/06/23 Spironolactone [Aldactone] 300 mg PO DAILY 08/06/23 08/06/23 traZODone [Desyrel] 50 mg PO HS PRN 08/06/23 08/06/23 - PHYSICAL EXAM AT DISCHARGE General Appearance: positive: Other (critical, on vent support) Neck: positive: Nml inspection, No JVD Respiratory: negative: Wheezes, Rales Cardiovascular: positive: Regular rate & rhythm Peripheral Pulses: positive: 1+ Extremities: positive: No pedal edema - LABS Result Diagrams: 08/09/23 04:33 08/09/23 04:33 - SEPSIS Current Stage of Sepsis: Ruled out - FOLLOW UP [facility] - TIME SPENT Time Spent in Discharge (Minutes): 60"
[2023-08-09] MEDS: PROPOFOL 1000 MG/100 ML 1,000 MG/100 ML BOTTLE IV SCH (16:07)
[2023-08-09 16:18] VITALS: BP 80/54; O2SAT 93
--- NOTE | 2023-08-10 11:01 | ANESTHESIA POST OP EVALUATION ---
Anesthesia Post Eval - Post Anesthesia Eval Vitals: Last Vital Signs Temp 38.1 C H 08/09/23 16:00 Pulse 101 H 08/09/23 16:00 Resp 17 08/09/23 16:00 BP 80/54 L 08/09/23 16:00 Pulse Ox 93 08/09/23 16:00 O2 Flow Rate CV Function Including HR & BP: Stable Pain Control: Satisfactory Nausea & Vomiting: Negative Mental Status: Other (patient to ICU intubated and sedation per surgeon request.) Respiratory Status: Airway Patent Hydration Status: Satisfactory Anesthesia Complications: None
== END 2023-08-09 16:20 | disposition short-term general hospital (02) | DRG 981 ==
LOC: EDUNIT# → ED 20:12 → MS2 08-06 00:04 → OBSVTOIN 08-06 08:36 → ICU 08-08 21:43
PROVIDERS: ADMIT Internal Medicine; ATTEND Internal Medicine
PROC: 0WQF0ZZ Repair Abdominal Wall, Open Approach (ICD-10-PCS; 2023-08-08)
PROC: 3E1M38Z Irrigation of Peritoneal Cavity using Irrigating Substance, Percutaneous Approach (ICD-10-PCS; 2023-08-08)
PROC: 5A1935Z Respiratory Ventilation, Less than 24 Consecutive Hours (ICD-10-PCS; 2023-08-08)
PROC: 0WJG0ZZ Inspection of Peritoneal Cavity, Open Approach (ICD-10-PCS; principal; 2023-08-08 20:30)
DX: G92.8 Other toxic encephalopathy (principal); E43 Unspecified severe protein-calorie malnutrition; K72.91 Hepatic failure, unspecified with coma; K76.7 Hepatorenal syndrome; T81.31XA Disruption of external operation (surgical) wound, not elsewhere classified, initial encounter; E87.1 Hypo-osmolality and hyponatremia; T81.10XA Postprocedural shock unspecified, initial encounter; R64 Cachexia; Z68.1 Body mass index [BMI] 19.9 or less, adult; K70.31 Alcoholic cirrhosis of liver with ascites; K43.2 Incisional hernia without obstruction or gangrene; T47.3X6A Underdosing of saline and osmotic laxatives, initial encounter; Z91.128 Patient's intentional underdosing of medication regimen for other reason; I95.81 Postprocedural hypotension; D64.9 Anemia, unspecified
CPT/HCPCS: 36415; 36600; 51798; 70450; 71045; 74018; 80048; 80053; 80306; 80307; 80320; 80329; 81003; 82140; 82330; 82607; 82746; 82803; 83540; 83690; 83735; 84100; 84295; 84466; 85025; 85027; 85610; 85730; 87150; 94002; 94003; 96374; 97116; 97162; 97530; 99285; A9270; J3010; J7120; J8499; P9047; 81001; 87086; 94770